=== PATIENT | female | born 1955 | race Caucasian/White ===

== ENCOUNTER 2016-08-29 15:17 | Emergency (ER) | payer OTHER ==
[2016-08-29 15:25] VITALS: BP 111/69; PULSE 90; TEMP 98; BMI 17.8
--- NOTE | 2016-08-29 16:23 | PDOC ---
History of Present Illness - General Chief Complaint: Pain, Acute Stated Complaint: ABD/ RT SIDE PAIN, ABSCESS Time Seen by Provider: 08/29/16 16:20 Past History - Past Medical History Allergies/Adverse Reactions: Allergies Allergy/AdvReac Type Severity Reaction Status Date / Time codeine AdvReac Verified 08/29/16 15:20 Home Medications: Ambulatory Orders Zolpidem Tartrate [Ambien] 5 mg PO HS PRN 07/28/13 Oxycodone HCl 30 mg PO QID 07/12/15 Anemia: No Asthma: No Cancer: No Cardiac Disorders: No CVA: No COPD: No CHF: No Dementia: No Diabetes: No GI Disorders: Yes (INTERNAL HEMORRHOIDS,POLYPS) Disorders: No HTN: No Hypercholesterolemia: No Liver Disease: No Seizures: No Thyroid Disease: No - Surgical History Abdominal Surgery: Yes Appendectomy: No Cardiac Surgery: No Cholecystectomy: Yes Lung Surgery: No Neurologic Surgery: Yes (NECK SX) Orthopedic Surgery: No - Immunization History Immunization Up to Date: Yes - Psycho/Social/Smoking Cessation Hx Anxiety: No Suicidal Ideation: No Smoking History: Current every day smoker Have you smoked in the past 12 months: Yes Number of Cigarettes Smoked Daily: 20 Information on smoking cessation initiated: No 'Breaking Loose' booklet given: 07/29/13 Hx Alcohol Use: No Drug/Substance Use Hx: No Substance Use Type: None Hx Substance Use Treatment: No *Physical Exam - Vital Signs Last Vital Signs Temp Pulse Resp BP Pulse Ox 98.0 F 90 20 111/69 95 08/29/16 15:21 08/29/16 15:21 08/29/16 15:21 08/29/16 15:21 08/29/16 15:21 *DC/Admit/Observation/Transfer Diagnosis at time of Disposition: [facility] - Discharge Dispostion Disposition: LEFT BEFORE MED [facility] - Referrals Referrals: Shelia Cason MD [Primary Care Provider] -
== END 2016-08-29 16:24 | disposition left against medical advice (07) ==
LOC: JER 15:17
DX: Z53.21 Procedure and treatment not carried out due to patient leaving prior to being seen by health care provider (principal); F17.210 Nicotine dependence, cigarettes, uncomplicated
CPT/HCPCS: 99281-25

== ENCOUNTER 2016-11-19 12:40 | Emergency (ER) | payer OTHER ==
[2016-11-19 12:49] VITALS: BMI 18.4
--- NOTE | 2016-11-19 13:13 | PDOC ---
History of Present Illness - General Chief Complaint: Chest Pain Stated Complaint: DIZZINESS Time Seen by Provider: 11/19/16 13:02 History Source: Patient Exam Limitations: No Limitations - History of Present Illness Initial Comments: 11/19/16 13:12 CHIEF COMPLAINT: Chest pain HISTORY OF PRESENT ILLNESS: This is a 61 year old female with a 25 pack-year history of smoking who presents for evaluation of sudden onset of "heartburn" while orking today. She reports associated lightheadedness. She denies shortness of breath, syncope or near syncope, or any other symptoms. Family history is notable for both parents with CAD/MIs under the age of 65. V/s on arrival are notable for SpO2 92%. REVIEW OF SYSTEMS: GENERAL/CONSTITUTIONAL: No fever or chills. No weakness. No weight change. HEAD, EYES, EARS, NOSE AND THROAT: No change in vision. No ear pain or discharge. No sore throat. CARDIOVASCULAR: Chest pain, "heartburn". RESPIRATORY: No cough, wheezing, or shortness of breath. GASTROINTESTINAL: No nausea, vomiting, diarrhea or constipation. GENITOURINARY: No dysuria, frequency, or change in urination. MUSCULOSKELETAL: No joint or muscle swelling or pain. No neck or back pain. SKIN: No rash or easy bruising. NEUROLOGIC: Lightheadedness. No headache, vertigo, loss of consciousness, or loss of sensation. PSYCHIATRIC: No depression or anxiety. ENDOCRINE: No increased thirst. No abnormal weight change. HEMATOLOGIC/LYMPHATIC: No anemia, easy bleeding, or history of blood clots. ALLERGIC/IMMUNOLOGIC: No hives or skin allergy. No latex allergy. PHYSICAL EXAM: GENERAL: The patient is awake, alert, and fully oriented, in no acute distress. HEAD: Normal with no signs of trauma. ENT: Pupils equal, round and reactive to light, extraocular movements intact, sclera anicteric, conjunctiva clear. Neck supple. LUNGS: Clear to auscultation bilaterally. Normal excursion. No respiratory distress or use of accessory muscles. CV: RRR, S1/S2, no MRG. Cap refill < 2 sec. ABDOMEN: Soft, non-distended, non-tender. EXTREMITIES: Normal range of motion, no edema. NEUROLOGICAL: Normal speech, normal gait. CN II-XII grossly intact. NIHSS=0. PSYCH: Normal mood, normal affect. SKIN: Warm, dry, normal turgor, no rashes or lesions noted. Past History - Past Medical History Allergies/Adverse Reactions: Allergies Allergy/AdvReac Type Severity Reaction Status Date / Time codeine AdvReac Verified 08/29/16 15:20 Home Medications: Ambulatory Orders Zolpidem Tartrate [Ambien] 5 mg PO HS PRN 07/28/13 Oxycodone HCl 30 mg PO QID 07/12/15 Aspirin [[place] Chewable] 81 mg PO DAILY 11/19/16 Cephalexin Monohydrate [Keflex -] 500 mg PO BID #8 capsule 11/19/16 Anemia: No Asthma: No Cancer: No Cardiac Disorders: No CVA: No COPD: No CHF: No Dementia: No Diabetes: No GI Disorders: Yes (INTERNAL HEMORRHOIDS,POLYPS) Disorders: No HTN: No Hypercholesterolemia: No Liver Disease: No Seizures: No Thyroid Disease: No - Surgical History Abdominal Surgery: Yes Appendectomy: No Cardiac Surgery: No Cholecystectomy: Yes Lung Surgery: No Neurologic Surgery: Yes (NECK SX) Orthopedic Surgery: No - Immunization History Immunization Up to Date: Yes - Psycho/Social/Smoking Cessation Hx Anxiety: No Suicidal Ideation: No Smoking History: Current every day smoker Have you smoked in the past 12 months: Yes Number of Cigarettes Smoked Daily: 20 Information on smoking cessation initiated: No 'Breaking Loose' booklet given: 07/29/13 Hx Alcohol Use: No Drug/Substance Use Hx: No Substance Use Type: None Hx Substance Use Treatment: No *Physical Exam - Vital Signs Last Vital Signs Temp Pulse Resp BP Pulse Ox 98.4 F 70 20 127/80 92 L 11/19/16 12:46 11/19/16 12:46 11/19/16 12:46 11/19/16 12:46 11/19/16 12:46 Heart Score/ECG Review - History History: Moderately suspicious - Electrocardiogram EKG: Normal - Age Age: 45-65 - Risk Factors Risk Factors Heart Score: Yes Smoking History, Yes Positive family hx of cardiac disease Based on the list above the patient has:: 1-2 risk factors - Troponin Troponin: </= normal limit - Score Heart Score - Total: 3 - ECG Intrepretation Rhythm: Regular Rhythm Comment:: 11/19/16 15:43 74bpm, no ST or T wave changes ED Treatment Course - LABORATORY CBC & Chemistry Diagram: 11/19/16 13:00 11/19/16 13:00 - RADIOLOGY Radiology Studies Ordered: Category Date Time Status CHEST X-RAY PORTABLE* [RAD] Stat Radiology 11/19/16 13:05 Ordered Medical Decision Making - Medical Decision Making 11/19/16 13:13 A/P: 61 year old female with chest pain. 1. EKG 2. Cardiac labs 3. Supplemental O2 4. Re-assess EKG: no ischemic changes. Troponin <0.02. UA with 9 WBCs, possible consistent with UTI. Culture sent, will treat with Keflex. Recommended that patient stay in ED or be placed in observation for MARY JO given smoking and strong family history of CAD. She declines. Signed out AMA. 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 Will return for worsening symptoms. *DC/Admit/Observation/Transfer Diagnosis at time of Disposition: Chest pain Qualifiers: Chest pain type: other chest pain Qualified Code(s): R07.89 - Other chest pain - Discharge Dispostion Disposition: AGAINST MEDICAL ADVICE Condition at time of disposition: Stable Admit: No - Prescriptions Prescriptions: Cephalexin Monohydrate [Keflex -] 500 mg PO BID #8 capsule - Referrals Referrals: Shelia Cason MD [Staff Physician] - Call tomorrow Rivas Piper MD [Staff Physician] - Call tomorrow (Call today) - Patient Instructions Printed Discharge Instructions: DI for Chest Pain Additional Instructions: -You are being signed out AGAINST MEDICAL ADVICE. -Your first set of blood work, your chest xray, and your EKG are normal, but we recommend a second set of blood tests to rule out heart attack. -Call cardiology (referral enclosed) TODAY to be seen as soon as possible for a stress test in the office. -Return here for recurrent chest pain, shortness of breath, fainting/near fainting, or any other concerning symptoms - Post Discharge Activity Work/School Note: Back to Work
[2016-11-19 13:45] LABS: URINE APPEARANCE SLCLOUDY; URINE BILIRUBIN NEGATIVE (NEGATIVE); URINE COLOR LTYELLOW; URINE GLUCOSE (UA) NEGATIVE (NEGATIVE); URINE KETONE NEGATIVE (NEGATIVE); URINE NITRITE NEGATIVE (NEGATIVE); URINE PROTEIN NEGATIVE (NEGATIVE); URINE UROBILINOGEN NEGATIVE E.U./dl (0.2-1.0)
[2016-11-19 13:47] LABS: URINE BLOOD 2+ (NEGATIVE); URINE LEUK ESTERASE 1+ (NEGATIVE)
[2016-11-19 13:50] LABS: URINE RBC 2 /hpf (0-3); URINE WBC 9 /hpf (3-5)
[2016-11-19 13:50] LABS: BASOPHIL 0.4 % (0-2.0); EOSINOPHIL 2.7 % (0-4.5); MCH 32.7 pg (25.7-33.7); MCHC 33.7 g/dl (32.0-36.0); MEAN PLT VOLUME 9.3 fl (7.5-11.1); PLATELET COUNT 221 K/MM3 (134-434); RDW 12.1 % (11.6-15.6); WHITE BLOOD COUNT 8.9 K/mm3 (4.0-10.0)
[2016-11-19] MEDS ORDERED: CEPHALEXIN MONOHYDRATE 500 MG CAPSULE (UD) PO ONE (13:55)
[2016-11-19 13:59] LABS: ALBUMIN 3.6 g/dl (3.4-5.0); ANION GAP 7 (8-16); BILIRUBIN,TOTAL 0.5 mg/dL (0.2-1.0); CALCIUM 8.8 mg/dL (8.5-10.1); CO2 29 mmol/L (21-32); CREATININE 0.7 mg/dL (0.55-1.02); GLUCOSE,RANDOM 150 mg/dL (74-106); SGOT/AST 18 U/L (15-37); SGPT/ALT 22 U/L (12-78); TOT PROT 6.2 g/dl (6.4-8.2)
[2016-11-19 14:00] LABS: INR 0.95 (0.82-1.09); PROTHROMBIN TIME (PATIENT) 10.4 SEC (9.98-11.88)
[2016-11-19 14:01] LABS: ALK PHOS 86 U/L (45-117); TROPONIN I < 0.02 ng/ml (0.00-0.05)
[2016-11-19 14:08] VITALS: TEMP 98.2
[2016-11-19] MEDS ORDERED: CEPHALEXIN MONOHYDRATE 250 MG CAPSULE (FP) ONE (14:10)
[2016-11-19 15:10] VITALS: BP 106/64; PULSE 68
--- NOTE | 2016-11-20 14:40 | EKG ---
Test Reason : Blood Pressure : / mmHG Vent. Rate : 065 BPM Atrial Rate : 065 BPM P-R Int : 154 ms QRS Dur : 090 ms QT Int : 390 ms P-R-T Axes : 071 012 056 degrees QTc Int : 405 ms NORMAL SINUS RHYTHM NORMAL ECG WHEN COMPARED WITH ECG OF 15-FEB-2016 11:09, NO SIGNIFICANT CHANGE WAS FOUND Confirmed by ANISA LORD MD ([id number]) on 11/20/2016 2:40:38 PM Referred By: Confirmed By:ANISA LORD MD
== END 2016-11-19 15:09 | disposition left against medical advice (07) ==
LOC: JER 12:40
DX: R07.89 Other chest pain (principal); F17.210 Nicotine dependence, cigarettes, uncomplicated
CPT/HCPCS: 36415; 71010-TC; 80053; 81003; 81015; 82550; 84484; 85025; 85610; 87086; 93005; 93010; 99284-25

== ENCOUNTER 2016-11-21 15:05 | Inpatient (IN) | payer OTHER ==
[2016-11-21 15:11] VITALS: BMI 18.4
--- NOTE | 2016-11-21 16:09 | PDOC ---
History of Present Illness <Ariana Ng - Last Filed: 11/21/16 16:09> - General History Source: Patient Exam Limitations: No Limitations - History of Present Illness Initial Comments: 11/21/16 16:29 The patient is a 61 year old female, with a significant past medical history of internal hemorrhoids, and polyps, who presents to the emergency department complaining of watery stool for approximately 3 days. Patient reports she has not been feeling well recently, and suddenly she began to experience loose watery stool. Patient states stool with liquid comes out between bowel movements. She reports associated left-sided abdominal pain. She denies any recent travel or sick contacts. Patient reports she presented to the ED on with similar symptoms, and was diagnosed with a UTI. Patient reports she was prescribed antibiotics, but was not compliant because her symptoms were not typical of her previous UTIs. Patient reports presenting to her PCPs office, Dr. Cason for further evaluation. Dr. Cason ordered an outpatient CT, which was notable for colitis. Patient was sent to the ED for further evaluation. Patient denies any family history of ulcerative colitis. She denies any nausea, or constipation. She denies any dysuria, hematuria, frequency, or urgency. She denies fever or chills. Allergies: Codeine Past Surgical History: (X4), Cholecystectomy Family History: CAD and MIs under 65 Social History: Current everyday smoker. No ETOH or drug use. PCP: Dr. Cason <Jennifer Langford - Last Filed: 11/21/16 16:32> - General Chief Complaint: Pain Stated Complaint: SENT BY PCP Past History - Past Medical History Anemia: No Asthma: No Cancer: No Cardiac Disorders: No CVA: No COPD: No CHF: No Dementia: No Diabetes: No GI Disorders: Yes (INTERNAL HEMORRHOIDS,POLYPS) Disorders: No HTN: No Hypercholesterolemia: No Liver Disease: No Seizures: No Thyroid Disease: No - Surgical History Abdominal Surgery: Yes Appendectomy: No Cardiac Surgery: No Cholecystectomy: Yes Lung Surgery: No Neurologic Surgery: Yes (NECK SX) Orthopedic Surgery: No - Immunization History Immunization Up to Date: Yes - Psycho/Social/Smoking Cessation Hx Anxiety: No Suicidal Ideation: No Smoking History: Current every day smoker Have you smoked in the past 12 months: Yes Number of Cigarettes Smoked Daily: 20 Information on smoking cessation initiated: No 'Breaking Loose' booklet given: 07/29/13 Hx Alcohol Use: No Drug/Substance Use Hx: No Substance Use Type: None Hx Substance Use Treatment: No <Ariana Ng - Last Filed: 11/21/16 16:09> <Jennifer Langford - Last Filed: 11/21/16 16:32> - Past Medical History Allergies/Adverse Reactions: Allergies Allergy/AdvReac Type Severity Reaction Status Date / Time codeine AdvReac Verified 11/21/16 15:11 Home Medications: Ambulatory Orders Zolpidem Tartrate [Ambien] 5 mg PO HS PRN 07/28/13 Oxycodone HCl 30 mg PO QID 07/12/15 Aspirin [[place] Chewable] 81 mg PO DAILY 11/19/16 Cephalexin Monohydrate [Keflex -] 500 mg PO BID #8 capsule 11/19/16 Review of Systems - Review of Systems Able to Perform ROS?: Yes Comments:: 11/21/16 16:29 GENERAL/CONSTITUTIONAL: No fever or chills. No weakness. HEAD, EYES, EARS, NOSE AND THROAT: No change in vision. No ear pain or discharge. No sore throat. CARDIOVASCULAR: No chest pain or shortness of breath. RESPIRATORY: No cough, wheezing, or hemoptysis. GASTROINTESTINAL: Yes: +abdominal pain, +diarrhea. No nausea, vomiting, or constipation. GENITOURINARY: No dysuria, frequency, or change in urination. MUSCULOSKELETAL: No joint or muscle swelling or pain. No neck or back pain. SKIN: No rash NEUROLOGIC: No headache, vertigo, loss of consciousness, or change in strength/ sensation. ENDOCRINE: No increased thirst. No abnormal weight change. HEMATOLOGIC/LYMPHATIC: No anemia, easy bleeding, or history of blood clots. ALLERGIC/IMMUNOLOGIC: No hives or skin allergy. <Jennifer Langford - Last Filed: 11/21/16 16:32> *Physical Exam - Vital Signs Last Vital Signs Temp Pulse Resp BP Pulse Ox 98.8 F 100 H 20 134/90 96 11/21/16 15:07 11/21/16 15:07 11/21/16 15:07 11/21/16 15:07 11/21/16 15:07 <Ariana Ng - Last Filed: 11/21/16 16:09> - Vital Signs Last Vital Signs Temp Pulse Resp BP Pulse Ox 98.8 F 100 H 20 134/90 96 11/21/16 15:07 11/21/16 15:07 11/21/16 15:07 11/21/16 15:07 11/21/16 15:07 - Physical Exam Comments: 11/21/16 16:30 GENERAL: Awake, alert, and fully oriented, in no acute distress HEAD: No signs of trauma EYES: PERRLA, EOMI, sclera anicteric, conjunctiva clear ENT: Auricles normal inspection, hearing grossly normal, nares patent. Dry mucosa NECK: Normal ROM, supple, no lymphadenopathy, JVD, or masses LUNGS: Breath sounds equal, clear to auscultation bilaterally. No wheezes, and no crackles HEART: Regular rate and rhythm, normal S1 and S2, no murmurs, rubs or gallops ABDOMEN: Left-sided tenderness to palpation, but no rebound or guarding. Normoactive bowel sounds. No masses EXTREMITIES: Normal range of motion, no edema. No clubbing or cyanosis. No cords , erythema, or tenderness. DP/PT pulses 2+ and symmetric. MUSCULOSKELTAL: No CVA tenderness NEUROLOGICAL: Moves all extremities. Normal speech, normal gait SKIN: Warm, Dry, normal turgor, no rashes or lesions noted. <Jennifer Langford - Last Filed: 11/21/16 16:32> ED Treatment Course - LABORATORY CBC & Chemistry Diagram: 11/21/16 16:15 11/21/16 16:15 - ADDITIONAL ORDERS Additional order review: 11/21/16 16:15 RBC 4.11 MCV 96.0 MCHC 33.4 RDW 12.1 MPV 9.4 Neutrophils % 85.9 H D Lymphocytes % 7.2 L D Monocytes % 5.8 Eosinophils % 0.8 Basophils % 0.3 <Jennifer Langford - Last Filed: 11/21/16 16:32> Medical Decision Making - Medical Decision Making 11/21/16 16:03 61 yo F with c/o loose watery stool x 3 days. pt states began not feeling well recently, then suddenly noted having loose watery stool. states stool with liquid coming out between urges. also c/o lower abd pain. no recent travel or abx. no urinary complaints. was seen and diagnosed with uti one week ago, bit didn't take abx because was not having urinary symptoms. saw Dr. Cason, who ordered outpt ct a/p, noted to have shaw colitis. sent to ED. no f/c no family h/ o ulcerative colitis. on exam awake alert dry mucous membranes. lungs clear heart RRR no mr//g bad soft . llq left mid quad ttp. no rebound no guarding. no cva tenderness. skin warm and dry no edema. plan: r/o electrolyte abnormality, infectious vs. ischemic vs. autoimmune colitis. pt already had outpt ct. plan iv abx, iv hydration labs stool studeies and Gi consult. <Ariana Ng - Last Filed: 11/21/16 16:09> *DC/Admit/Observation/Transfer - Discharge Dispostion Admit: Yes <Ariana Ng - Last Filed: 11/21/16 16:09> - Attestations Scribe Attestion: 11/21/16 16:30 Documentation prepared by Jennifer Langford, acting as medical staff manager for Ariana Ng MD. <Jennifer Langford - Last Filed: 11/21/16 16:32> Diagnosis at time of Disposition: Colitis - Referrals Referrals: Shelia Cason MD [Primary Care Provider] -
[2016-11-21] MEDS ORDERED: SODIUM CHLORIDE 0.9% 1000 ML INFUS.BAG IV ONE (16:12)
[2016-11-21] MEDS ORDERED: CIPROFLOXACIN 400 MG/D5W 200 ML IVPB ONE (16:12)
[2016-11-21] MEDS ORDERED: METRONIDAZOLE 500 MG PREMIXED 100 ML IVPB ONE ×2 (16:12→16:53)
[2016-11-21 16:25] LABS: BASOPHIL 0.3 % (0-2.0); EOSINOPHIL 0.8 % (0-4.5); MCH 32.1 pg (25.7-33.7); MCHC 33.4 g/dl (32.0-36.0); MEAN PLT VOLUME 9.4 fl (7.5-11.1); NEUTROPHILS 85.9 % (42.8-82.8); PLATELET COUNT 222 K/MM3 (134-434); RDW 12.1 % (11.6-15.6); WHITE BLOOD COUNT 16.2 K/mm3 (4.0-10.0)
[2016-11-21 16:55] LABS: ALBUMIN 3.4 g/dl (3.4-5.0); ANION GAP 10 (8-16); BILIRUBIN,TOTAL 0.8 mg/dL (0.2-1.0); CALCIUM 8.8 mg/dL (8.5-10.1); CO2 26 mmol/L (21-32); CREATININE 0.7 mg/dL (0.55-1.02); GLUCOSE,RANDOM 174 mg/dL (74-106); SGOT/AST 22 U/L (15-37); SGPT/ALT 25 U/L (12-78); TOT PROT 6.2 g/dl (6.4-8.2)
[2016-11-21 16:56] LABS: ALK PHOS 101 U/L (45-117)
[2016-11-21] MEDS ORDERED: ONDANSETRON 4 MG/2 ML VIAL IVPB PRN (17:59)
[2016-11-21] MEDS ORDERED: SODIUM CHLORIDE 1,000 ML IV SCH (18:00)
--- NOTE | 2016-11-21 18:48 | CON.GI ---
Consult Consult Specialty:: gastroenterology Referred by:: Dr Shelia Cason - History of Present Illness History of Present Illness: 61 y/o female was doing well until 3 days ago when she developed persistent LLQ pain and soft, non bloody stool. Cat scan done today which revealed an inflammed sigmoid. S/p colonoscopy a year ago which revealed colonic polyps - Past Surgical History Past Surgical History: Yes: Cholecystectomy Additional Surgical History: ceasarian section, breast implants - Alcohol/Substance Use Hx Alcohol Use: No - Smoking History Smoking history: Current every day smoker Have you smoked in the past 12 months: Yes Aproximately how many cigarettes per day: 20 Home Medications - Allergies Allergies/Adverse Reactions: Allergies Allergy/AdvReac Type Severity Reaction Status Date / Time codeine AdvReac Verified 11/21/16 15:11 - Home Medications Home Medications: Ambulatory Orders Zolpidem Tartrate [Ambien] 5 mg PO HS PRN 07/28/13 Oxycodone HCl 30 mg PO QID 07/12/15 Aspirin [[place] Chewable] 81 mg PO DAILY 11/19/16 Cephalexin Monohydrate [Keflex -] 500 mg PO BID #8 capsule 11/19/16 Family Disease History - Family Disease History Family History: Denies (colon andd gastric cancer) Review of Systems - Review of Systems Constitutional: denies: Fever Eyes: denies: Blind Spots HENT: denies: Difficult Swallowing Neck: denies: Decreased ROM Cardiovascular: denies: Chest Pain Respiratory: denies: SOB Gastrointestinal: reports: Abdominal Pain, Diarrhea Physical Exam-GI Vital Signs: Vital Signs Temperature 98.8 F 11/21/16 15:07 Pulse Rate 100 H 11/21/16 15:07 Respiratory Rate 20 11/21/16 15:07 Blood Pressure 134/90 11/21/16 15:07 O2 Sat by Pulse Oximetry (%) 96 11/21/16 15:07 Constitutional: Yes: No Distress Eyes: Yes: Conjunctiva Clear HENT: Yes: Atraumatic Neck: Yes: Supple Cardiovascular: Yes: Regular Rate and Rhythm Respiratory: Yes: CTA Bilaterally ...Palpate: Yes: Soft, Tenderness (llq pain). No: Firm/Rigid, Guarding, Hepatomegaly, Mass, Splenomegaly Labs: CBC, BMP 11/21/16 16:15 11/21/16 16:15 Problem List - Problems (1) Diarrhea Assessment/Plan: r/o infectious vs ishemic colitis R> stool analysis culture and sensitivity, ova and parasites, c.diff r/o hypercoaguable state Iv hydration continue antibiotics Code(s): R19.7 - DIARRHEA, UNSPECIFIED
--- NOTE | 2016-11-21 20:07 | HP ---
Admitting History and Physical - Admission History of Present Illness: 61 year old female, with a significant past medical history of internal hemorrhoids, and polyps, who presents to the emergency department complaining of watery stool for approximately 3 days. Patient reports she has not been feeling well recently, and suddenly she began to experience loose watery stool. Patient states stool with liquid comes out between bowel movements. She reports associated left-sided abdominal pain. She denies any recent travel or sick contacts. Patient reports she presented to the ED on 11/19/16 with similar symptoms, and was diagnosed with a UTI. Patient reports she was prescribed antibiotics, but was not compliant because her symptoms were not typical of her previous UTIs. Patient reports presented to the office and an outpatient CT done, which was notable for colitis. Patient was sent to the ED for further evaluation. Patient denies any family history of ulcerative colitis. She denies any nausea, or constipation. She denies any dysuria, hematuria, frequency, or urgency. She denies fever or chills. - Past Medical History Cardiovascular: No: CAD, HTN Pulmonary: No: COPD Gastrointestinal: Yes: GERD Musculoskeletal: Yes: Chronic low back pain - Past Surgical History Past Surgical History: Yes: Cholecystectomy - Smoking History Smoking history: Current every day smoker Have you smoked in the past 12 months: Yes Aproximately how many cigarettes per day: 20 - Alcohol/Substance Use Hx Alcohol Use: No Home Medications - Allergies Allergies/Adverse Reactions: Allergies Allergy/AdvReac Type Severity Reaction Status Date / Time codeine AdvReac Verified 11/21/16 15:11 - Home Medications Home Medications: Ambulatory Orders Zolpidem Tartrate [Ambien] 5 mg PO HS PRN 07/28/13 Oxycodone HCl 30 mg PO QID 07/12/15 Aspirin [[place] Chewable] 81 mg PO DAILY 11/19/16 Cephalexin Monohydrate [Keflex -] 500 mg PO BID #8 capsule 11/19/16 Review of Systems - Review of Systems Neck: reports: No Symptoms Cardiovascular: denies: Chest Pain, Shortness of Breath Respiratory: denies: SOB, SOB on Exertion Gastrointestinal: reports: Abdominal Pain, Diarrhea. denies: Rectal Bleeding Physical Examination Vital Signs: Vital Signs Temperature 98.8 F 11/21/16 15:07 Pulse Rate 100 H 11/21/16 15:07 Respiratory Rate 20 11/21/16 15:07 Blood Pressure 134/90 11/21/16 15:07 O2 Sat by Pulse Oximetry (%) 96 11/21/16 15:07 Cardiovascular: Yes: Regular Rate and Rhythm Respiratory: Yes: Regular, CTA Bilaterally Gastrointestinal: Yes: Normal Bowel Sounds, Soft, Tenderness (llq) Edema: No Labs: CBC, BMP 11/21/16 16:15 11/21/16 16:15 Imaging - Results Cat Scan: Report Reviewed Problem List - Problems (1) Colitis Assessment/Plan: IVF IV ABX NPO GI CONSULT Code(s): K52.9 - NONINFECTIVE GASTROENTERITIS AND COLITIS, UNSPECIFIED (2) Abdominal pain Assessment/Plan: SEE ABOVE Code(s): R10.9 - UNSPECIFIED ABDOMINAL PAIN (3) Leukocytosis Assessment/Plan: MONITOR Code(s): D72.829 - ELEVATED WHITE BLOOD CELL COUNT, UNSPECIFIED
[2016-11-21] MEDS ORDERED: oxyCODONE HCL 5 MG TABLET ONE (20:18)
[2016-11-21] MEDS: oxyCODONE HCL 5 MG TABLET PO PRN (20:20)
[2016-11-21] MEDS: DEXTROSE 5%-NORMAL SALINE 1,000 ML IV SCH (21:11)
[2016-11-21] MEDS: HEPARIN NA (PORCINE) 5,000 UNITS/ML 1ML VIAL SQ SCH (21:12)
[2016-11-21] MEDS: ZOLPIDEM TARTRATE 5 MG TABLET PO PRN (22:10)
[2016-11-22] MEDS: oxyCODONE HCL 5 MG TABLET PO PRN ×6 (00:07→20:37)
[2016-11-22] MEDS: PIPERACILLIN/TAZOB 3.375 GM/50 ML PRE-DOCKED IVPB SCH ×2 (01:26→09:50)
[2016-11-22] MEDS: METRONIDAZOLE PREMIXED IVPB 50 ML IVPB SCH ×3 (01:37→18:02)
[2016-11-22] MEDS: DEXTROSE 5%-NORMAL SALINE 1,000 ML IV SCH (05:25)
--- NOTE | 2016-11-22 07:37 | PN ---
Progress Note, Physician History of Present Illness: still with pain - Current Medication List Current Medications: Active Medications Heparin Sodium (Porcine) (Heparin -) 5,000 unit SQ BID CHRISTOS Last Admin: 11/21/16 21:12 Dose: 5,000 unit Metronidazole (Flagyl 250mg Premixed Ivpb -) 50 mls @ 50 mls/hr IVPB Q8H-IV CHRISTOS Last Admin: 11/22/16 01:37 Dose: 50 mls/hr Sodium Chloride (Normal Saline -) 1,000 mls @ 125 mls/hr IV ASDIR CHRISTOS Last Admin: 11/21/16 19:05 Dose: 125 mls/hr Dextrose/Sodium Chloride (D5-Ns -) 1,000 mls @ 150 mls/hr IV ASDIR CHRISTOS Stop: 11/24/16 01:39 Last Admin: 11/22/16 05:25 Dose: 150 mls/hr Ondansetron HCl (Zofran Injection) 4 mg IVPB Q6H PRN PRN Reason: NAUSEA Oxycodone HCl (Roxicodone -) 10 mg PO Q4H PRN PRN Reason: PAIN Last Admin: 11/22/16 04:02 Dose: 10 mg Piperacillin Sod/Tazobactam Sod (Zosyn 3.375gm Ivpb (Pre-Docked)) 3.375 gm IVPB Q8H-IV CHRISTOS PRN Reason: Protocol Piperacillin Sod/Tazobactam Sod (Zosyn 3.375gm Ivpb (Pre-Docked)) 3.375 gm IVPB Q8H-IV CHRISTOS PRN Reason: Protocol Stop: 11/22/16 10:01 Last Admin: 11/22/16 01:26 Dose: 3.375 gm Zolpidem Tartrate (Ambien -) 5 mg PO HS PRN PRN Reason: INSOMNIA Last Admin: 11/21/16 22:10 Dose: 5 mg - Objective Vital Signs: Vital Signs Temperature 98.1 F 11/22/16 05:51 Pulse Rate 71 11/22/16 05:51 Respiratory Rate 20 11/22/16 05:51 Blood Pressure 90/50 11/22/16 05:51 O2 Sat by Pulse Oximetry (%) 99 11/21/16 20:22 Cardiovascular: Yes: Regular Rate and Rhythm Respiratory: Yes: Regular, CTA Bilaterally Gastrointestinal: Yes: Normal Bowel Sounds, Soft, Tenderness (LLQ) Labs: CBC, BMP 11/21/16 16:15 11/21/16 16:15 Problem List - Problems (1) Colitis Assessment/Plan: R/O INFECTIOUS ETIOLOGY VS LOW FLOW STATE IVF IV ABX NPO GI CONSULT ID CONSULT Code(s): K52.9 - NONINFECTIVE GASTROENTERITIS AND COLITIS, UNSPECIFIED (2) Abdominal pain Assessment/Plan: SEE ABOVE Code(s): R10.9 - UNSPECIFIED ABDOMINAL PAIN (3) Leukocytosis Assessment/Plan: MONITOR Code(s): D72.829 - ELEVATED WHITE BLOOD CELL COUNT, UNSPECIFIED
[2016-11-22 08:14] LABS: BASOPHIL 0.4 % (0-2.0); EOSINOPHIL 2.9 % (0-4.5); MCH 32.8 pg (25.7-33.7); MCHC 33.9 g/dl (32.0-36.0); MEAN CELL VOLUME 96.7 fl (80-96); MEAN PLT VOLUME 9.1 fl (7.5-11.1); NEUTROPHILS 62.6 % (42.8-82.8); PLATELET COUNT 171 K/MM3 (134-434); WHITE BLOOD COUNT 6.3 K/mm3 (4.0-10.0)
[2016-11-22 08:40] LABS: ALBUMIN 2.7 g/dl (3.4-5.0); ANION GAP 7 (8-16); CO2 26 mmol/L (21-32); GLUCOSE,RANDOM 116 mg/dL (74-106); SGOT/AST 14 U/L (15-37); SGPT/ALT 21 U/L (12-78)
[2016-11-22 08:45] LABS: ALK PHOS 70 U/L (45-117); BILIRUBIN,TOTAL 0.5 mg/dL (0.2-1.0); C-REACTIVE PROTEIN 4.4 MG/DL (0.00-0.3); CALCIUM 8.3 mg/dL (8.5-10.1); CREATININE 0.5 mg/dL (0.55-1.02); TOT PROT 5.1 g/dl (6.4-8.2)
[2016-11-22 09:20] LABS: THYROID STIMULATING HORMONE 0.72 uIU/ml (0.358-3.74)
[2016-11-22] MEDS: HEPARIN NA (PORCINE) 5,000 UNITS/ML 1ML VIAL SQ SCH ×2 (09:50→21:27)
[2016-11-22 10:05] LABS: ERYTHROCYTE SEDIMENTATION RATE 11 mm/hr (0-30)
[2016-11-22] MEDS: D5-NS + 20 MEQ KCL - 1,000 ML IV SCH ×2 (11:32→20:40)
--- NOTE | 2016-11-22 12:09 | PN ---
Progress Note (short form) - Note Progress Note: ID Consult dictated L sided colitis - infectious/ inflammatory v. ischemic Pending stool studies, empiric ceftriaxone/ flagyl
--- NOTE | 2016-11-22 13:16 | CONS ---
DATE OF CONSULTATION: DATE OF DICTATION: 11/22/2016 HISTORY OF PRESENT ILLNESS: The patient is a 61-year-old female evaluated for colitis. Patient reports not feeling well for a week or so. She had developed some crampy abdominal pain and what she described as heartburn. She presented to the emergency room on November 19, 2016. She was diagnosed with urinary tract infection. Patient states she did not have any urinary tract symptoms. She was prescribed an antibiotic. However, she did not take the antibiotic. She subsequently developed worsening crampy abdominal pain localized to the left abdomen. She also described some fecal incontinence. She had developed watery brown diarrhea which was associated with episodes of incontinence. She denies any nausea or vomiting. No fever or chills. The patient denies any ill contacts. No family or friends with GI symptoms. As mentioned, she did not take the oral antibiotic prior to admission for her UTI. She denied any travel history. Patient has had a history of GI issues. She has had colonic polyps in the past. Her last colonoscopy was approximately 2 years ago. CAT scan performed shows left-sided colitis from the splenic flexure extending diffusely to the level of the rectum. PAST MEDICAL HISTORY: As above. PAST SURGICAL HISTORY: Status post section and a hysterectomy. ALLERGIES: CODEINE. MEDICATIONS: As an outpatient include Ambien, aspirin, Keflex. 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 She does not have direct patient contact. Positive history of tobacco use. SYSTEMS REVIEW:Neurologic: No loss of consciousness, seizure activity, or focal weakness. Cardiac: Negative chest pain or palpitations. Respiratory: Negative cough or sputum production. Gastrointestinal: As per HPI. Genitourinary: Negative for urinary tract infection. LABORATORY DATA: White count on admission 16.2, 85% neutrophils, 7 lymphocytes, 5 monocytes, no eosinophils. BUN 10, creatinine 0.5. Liver enzymes normal. PHYSICAL EXAMINATION:General: She is awake and alert. She is weak appearing; however, not acutely toxic, in no acute distress. Vital Signs: Temperature 98.1, blood pressure 90/50, pulse 71, regular, respirations 20 per minute. HEENT: Sclerae anicteric. Cardiac: Heart sounds S1, S2. Lungs: Clear. Abdomen: Soft. Left-sided tenderness to palpation. No mass, rebound, or rigidity. Extremities: Negative for edema. IMPRESSION:1. Acute left-sided colitis. 2. Leukocytosis, possible sepsis secondary to colitis. RECOMMENDATIONS: Etiology of left-sided colitis infectious/inflammatory versus ischemic. Focal nature of the colitis argues more for ischemic or inflammatory versus infectious. Await stool studies, including stool for culture and sensitivity, leukocytes, C. difficile, ova and parasites, stool for norovirus and rotavirus, blood cultures. Empiric antibiotic coverage with ceftriaxone and Flagyl. GI evaluation. Followup colonoscopy when improved. Will follow. Thank you for the kind referral. VANDANA CREWS M.D. [id number]
[2016-11-22] MEDS: CEFTRIAXONE 100 ML IVPB SCH (13:24)
[2016-11-22] MEDS ORDERED: PT OWN MED DRAWER 7, Y5N ONE (17:41)
[2016-11-22] MEDS ORDERED: PIPERACILLIN/TAZOB 3.375 GM/50 ML PRE-DOCKED IVPB SCH (18:00)
--- NOTE | 2016-11-22 19:38 | CONSULT ---
Consult - text type - Consultation Consultation Note: 61 y/o female was doing well until 3 days ago when she developed persistent LLQ pain and soft, non bloody stool. Cat scan done today which revealed an inflammed sigmoid. S/p colonoscopy a year ago which revealed colonic polyps - Past Surgical History Past Surgical History: Yes: Cholecystectomy Additional Surgical History: ceasarian section, breast implants - Smoking History Smoking history: Current every day smoker Home Medications - Allergies Allergies/Adverse Reactions: Allergies Allergy/AdvReac Type Severity Reaction Status Date / Time codeine AdvReac Verified 11/21/16 15:11 - Home Medications Home Medications: Ambulatory Orders Zolpidem Tartrate [Ambien] 5 mg PO HS PRN 07/28/13 Oxycodone HCl 30 mg PO QID 07/12/15 Aspirin [[place] Chewable] 81 mg PO DAILY 11/19/16 Cephalexin Monohydrate [Keflex -] 500 mg PO BID #8 capsule 11/19/16 Family Disease History - Family Disease History Family History: Denies (colon andd gastric cancer) Physical Exam-GI Vital Signs: Vital Signs Temperature 98.8 F 11/21/16 15:07 Pulse Rate 100 H 11/21/16 15:07 Respiratory Rate 20 11/21/16 15:07 Blood Pressure 134/90 11/21/16 15:07 O2 Sat by Pulse Oximetry (%) 96 11/21/16 15:07 Constitutional: Yes: No Distress Eyes: Yes: Conjunctiva Clear HENT: Yes: Atraumatic Neck: Yes: Supple Cardiovascular: Yes: Regular Rate and Rhythm Respiratory: Yes: CTA Bilaterally ...Palpate: Yes: Soft, Tenderness (llq pain). No: Firm/Rigid, Guarding, Hepatomegaly, Mass, Splenomegaly Labs reviewed A/P 61 y/o patient with Lt. sided colitis infectious/inflammatory vs ischemic no prior thhrombosis or family h/o thrombosis h/o miscarriages --4 due to ? hormonal dysregulation---got progesterone in past will check thrombophilia w/u also with chronic pericardial effusion --w/u per primary team also s/p cholecystectomy, dilated bile ducts--chronic. last MRI 04/18 . F/U pe GI team Leukocytosis--baseline ? smoking will recheck mutations -- JAK2/MPL/CALR as outpatient
[2016-11-22] MEDS: ZOLPIDEM TARTRATE 5 MG TABLET PO PRN (23:05)
[2016-11-23] MEDS: METRONIDAZOLE PREMIXED IVPB 50 ML IVPB SCH ×3 (02:23→18:00)
[2016-11-23] MEDS: oxyCODONE HCL 5 MG TABLET PO PRN ×4 (06:04→18:05)
[2016-11-23] MEDS: D5-NS + 20 MEQ KCL - 1,000 ML IV SCH ×2 (06:06→12:00)
--- NOTE | 2016-11-23 07:54 | PN ---
Progress Note, Physician History of Present Illness: still with pain - Current Medication List Current Medications: Active Medications Heparin Sodium (Porcine) (Heparin -) 5,000 unit SQ BID [facility] Last Admin: 11/22/16 21:27 Dose: 5,000 unit Metronidazole (Flagyl 250mg Premixed Ivpb -) 50 mls @ 50 mls/hr IVPB Q8H-IV [facility] Last Admin: 11/23/16 02:23 Dose: 50 mls/hr Dextrose/Sodium Chloride (Dextrose 5%-Normal Saline+20 Meq Kcl -) 1,000 mls @ 150 mls/hr IV ASDIR [facility] Last Admin: 11/23/16 06:06 Dose: 150 mls/hr Ceftriaxone Sodium (Rocephin 2gm Ivpb (Pre-Docked)) 100 mls @ 200 mls/hr IVPB DAILY [facility] Last Admin: 11/22/16 13:24 Dose: 200 mls/hr Ondansetron HCl (Zofran Injection) 4 mg IVPB Q6H PRN PRN Reason: NAUSEA Oxycodone HCl (Roxicodone -) 10 mg PO Q4H PRN PRN Reason: PAIN Last Admin: 11/23/16 06:04 Dose: 10 mg Zolpidem Tartrate (Ambien -) 5 mg PO HS PRN PRN Reason: INSOMNIA Last Admin: 11/22/16 23:05 Dose: 5 mg - Objective Vital Signs: Vital Signs Temperature 98.2 F 11/23/16 05:39 Pulse Rate 66 11/23/16 05:39 Respiratory Rate 20 11/23/16 05:39 Blood Pressure 108/58 11/23/16 05:39 O2 Sat by Pulse Oximetry (%) 99 11/21/16 20:22 Cardiovascular: Yes: Regular Rate and Rhythm Respiratory: Yes: Regular, CTA Bilaterally Gastrointestinal: Yes: Normal Bowel Sounds, Soft, Tenderness (MINIMAL --MUCH BETTER) Labs: CBC, BMP 11/22/16 07:00 11/22/16 07:00 Problem List - Problems (1) Colitis Assessment/Plan: R/O INFECTIOUS ETIOLOGY VS LOW FLOW STATE IVF IV ABX NPO GI CONSULT ID CONSULT Code(s): K52.9 - NONINFECTIVE GASTROENTERITIS AND COLITIS, UNSPECIFIED (2) Abdominal pain Assessment/Plan: SEE ABOVE Code(s): R10.9 - UNSPECIFIED ABDOMINAL PAIN (3) Leukocytosis Assessment/Plan: MONITOR IMPROVED CBC WBC 5.1 K/mm3 (4.0-10.0) 11/23/16 08:45 RBC 3.84 M/mm3 (3.60-5.2) 11/23/16 08:45 Hgb 12.5 GM/dL (10.7-15.3) 11/23/16 08:45 Hct 37.3 % (32.4-45.2) 11/23/16 08:45 MCV 97.2 fl (80-96) H 11/23/16 08:45 MCHC 33.4 g/dl (32.0-36.0) 11/23/16 08:45 RDW 12.2 % (11.6-15.6) 11/23/16 08:45 Plt Count 176 K/MM3 (134-434) 11/23/16 08:45 MPV 9.4 fl (7.5-11.1) 11/23/16 08:45 Neutrophils % 61.0 % (42.8-82.8) 11/23/16 08:45 Lymphocytes % 22.8 % (8-40) 11/23/16 08:45 Monocytes % 12.3 % (3.8-10.2) H 11/23/16 08:45 Eosinophils % 3.5 % (0-4.5) 11/23/16 08:45 Basophils % 0.4 % (0-2.0) 11/23/16 08:45 ESR 11 mm/hr (0-30) 11/22/16 07:00 Code(s): D72.829 - ELEVATED WHITE BLOOD CELL COUNT, UNSPECIFIED
[2016-11-23 09:02] LABS: BASOPHIL 0.4 % (0-2.0); EOSINOPHIL 3.5 % (0-4.5); MCH 32.4 pg (25.7-33.7); MCHC 33.4 g/dl (32.0-36.0); MEAN CELL VOLUME 97.2 fl (80-96); MEAN PLT VOLUME 9.4 fl (7.5-11.1); PLATELET COUNT 176 K/MM3 (134-434); RDW 12.2 % (11.6-15.6); WHITE BLOOD COUNT 5.1 K/mm3 (4.0-10.0)
[2016-11-23 09:19] LABS: ALBUMIN 2.8 g/dl (3.4-5.0); ALK PHOS 76 U/L (45-117); ANION GAP 4 (8-16); BILIRUBIN,TOTAL 0.3 mg/dL (0.2-1.0); CALCIUM 8.7 mg/dL (8.5-10.1); CO2 27 mmol/L (21-32); CREATININE 0.6 mg/dL (0.55-1.02); GLUCOSE,RANDOM 102 mg/dL (74-106); SGOT/AST 17 U/L (15-37); SGPT/ALT 23 U/L (12-78); TOT PROT 5.3 g/dl (6.4-8.2)
[2016-11-23] MEDS: CEFTRIAXONE 100 ML IVPB SCH (09:45)
[2016-11-23] MEDS: HEPARIN NA (PORCINE) 5,000 UNITS/ML 1ML VIAL SQ SCH ×2 (09:45→21:11)
--- NOTE | 2016-11-23 10:37 | EKG ---
Test Reason : Blood Pressure : / mmHG Vent. Rate : 080 BPM Atrial Rate : 080 BPM P-R Int : 152 ms QRS Dur : 088 ms QT Int : 372 ms P-R-T Axes : 075 019 062 degrees QTc Int : 429 ms NORMAL SINUS RHYTHM NORMAL ECG WHEN COMPARED WITH ECG OF 19-NOV-2016 12:56, NO SIGNIFICANT CHANGE WAS FOUND Confirmed by VANDANA VEGA MD ([id number]) on 11/23/2016 10:37:24 AM Referred By: Confirmed By:VANDANA VEGA MD
--- NOTE | 2016-11-23 13:32 | PN ---
Progress Note, Physician History of Present Illness: Reports diffuse abdominal discomfort- now improved (7 out of 10 ) Denies N/V/D No rectal bleeding No fever/ chills Afebrile WBC improved- now WNL BC (-) Stool studies pending - Current Medication List Current Medications: Active Medications Heparin Sodium (Porcine) (Heparin -) 5,000 unit SQ BID [facility] Last Admin: 11/23/16 09:45 Dose: 5,000 unit Metronidazole (Flagyl 250mg Premixed Ivpb -) 50 mls @ 50 mls/hr IVPB Q8H-IV [facility] Last Admin: 11/23/16 09:44 Dose: 50 mls/hr Dextrose/Sodium Chloride (Dextrose 5%-Normal Saline+20 Meq Kcl -) 1,000 mls @ 150 mls/hr IV ASDIR [facility] Last Admin: 11/23/16 12:00 Dose: Not Given Ceftriaxone Sodium (Rocephin 2gm Ivpb (Pre-Docked)) 100 mls @ 200 mls/hr IVPB DAILY [facility] Last Admin: 11/23/16 09:45 Dose: 200 mls/hr Ondansetron HCl (Zofran Injection) 4 mg IVPB Q6H PRN PRN Reason: NAUSEA Oxycodone HCl (Roxicodone -) 10 mg PO Q4H PRN PRN Reason: PAIN Last Admin: 11/23/16 10:01 Dose: 10 mg Zolpidem Tartrate (Ambien -) 5 mg PO HS PRN PRN Reason: INSOMNIA Last Admin: 11/22/16 23:05 Dose: 5 mg - Objective Vital Signs: Vital Signs Temperature 98.1 F 11/23/16 09:25 Pulse Rate 59 L 11/23/16 09:25 Respiratory Rate 20 11/23/16 09:25 Blood Pressure 104/56 11/23/16 09:25 O2 Sat by Pulse Oximetry (%) 94 L 11/23/16 09:00 Constitutional: Yes: No Distress Eyes: Yes: Conjunctiva Clear Cardiovascular: Yes: Regular Rate and Rhythm, S1, S2 Respiratory: Yes: CTA Bilaterally Gastrointestinal: Yes: Normal Bowel Sounds, Soft, Tenderness, Other (mild diffuse tenderness) Edema: No Labs: CBC, BMP 11/23/16 08:45 11/23/16 08:45 Assessment/Plan Colitis- infectious/ inflammatory v. ischemic Leukocytosis- resolved Await stool studies Continue empiric ceftriaxone/ flagyl
[2016-11-23] MEDS ORDERED: PT OWN MED DRAWER 7, Y5N ONE (17:58)
--- NOTE | 2016-11-23 19:58 | PN ---
GI Progress Note Subjective: Patient states she was feeling well until this AM when she started clear liquids. After meal she became nauseouis and developed suprapubic/RLQ pain. She is not haveing bloody stools - Objective Vital Signs: Vital Signs Temperature 98.4 F 11/23/16 13:33 Pulse Rate 66 11/23/16 13:33 Respiratory Rate 20 11/23/16 13:33 Blood Pressure 109/67 11/23/16 13:33 O2 Sat by Pulse Oximetry (%) 94 L 11/23/16 09:00 Constitutional: Well Nourished, Anxious Neck: Yes: Supple Cardiovascular: Yes: Regular Rate and Rhythm Respiratory: Yes: CTA Bilaterally Gastrointestinal Inspection: Yes: WNL ...Auscultate: Yes: Normoactive Bowel Sounds ...Palpate: Yes: Soft, Tenderness (suprapubic/RLQ. No rebound) Labs: CBC, BMP 11/23/16 08:45 11/23/16 08:45 Assessment/Plan 61 F with h/o prescription opiate abuse, on oxy 30 QID now with nausea and lower abdominal pain Receiving percocet 10 QID here Now with colitis on CT. Leukocytosis has resolved Hold clears and resume IVF for now CTA to r/o ischemic etiology Utox now-r/o cocaine
[2016-11-23] MEDS: ZOLPIDEM TARTRATE 5 MG TABLET PO PRN (21:14)
--- NOTE | 2016-11-23 23:24 | PN ---
Progress Note (short form) - Note Progress Note: PAtient seen and examined Denies any complaints Last Vital Signs Temp Pulse Resp BP Pulse Ox 97.2 F L 72 18 92/63 96 11/24/16 09:28 11/24/16 09:28 11/24/16 09:28 11/24/16 09:28 11/23/16 19:58 Cor: RSR, No murmurs, No gallops Lungs: Clear to P&A Abd: Soft, Normal bowel sounds, No organomegaly Ext:No significant edema Skin: No rashes, Integument intact Labs/meds reviewed A/P 61 y/o patient with infectious lt. sided colitis ?r/o ischemic per gi team wbc trending down ? hiv testing getting cta thrombophilia w/u in progress
[2016-11-24] MEDS ORDERED: PT OWN MED DRAWER 7, Y5N ONE ×3 (00:48→17:40)
[2016-11-24] MEDS: oxyCODONE HCL 5 MG TABLET PO PRN ×5 (01:57→20:50)
[2016-11-24] MEDS: METRONIDAZOLE PREMIXED IVPB 50 ML IVPB SCH ×3 (01:58→17:46)
[2016-11-24] MEDS: D5-NS + 20 MEQ KCL - 1,000 ML IV SCH ×3 (05:31→16:53)
[2016-11-24 09:09] LABS: URINE MARIJUANA THC NEGATIVE ng/ml (CUTOFF=50)
[2016-11-24] MEDS: HEPARIN NA (PORCINE) 5,000 UNITS/ML 1ML VIAL SQ SCH ×2 (10:23→21:11)
[2016-11-24] MEDS: CEFTRIAXONE 100 ML IVPB SCH (10:24)
--- NOTE | 2016-11-24 12:05 | PN ---
Progress Note, Physician History of Present Illness: FEELS BETTER TODAT HAD PAIN YESTERDAY WHICH HAS IMPROVED - Current Medication List Current Medications: Active Medications Heparin Sodium (Porcine) (Heparin -) 5,000 unit SQ BID [facility] Last Admin: 11/24/16 10:23 Dose: 5,000 unit Metronidazole (Flagyl 250mg Premixed Ivpb -) 50 mls @ 50 mls/hr IVPB Q8H-IV [facility] Last Admin: 11/24/16 10:23 Dose: 50 mls/hr Dextrose/Sodium Chloride (Dextrose 5%-Normal Saline+20 Meq Kcl -) 1,000 mls @ 150 mls/hr IV ASDIR [facility] Last Admin: 11/24/16 05:31 Dose: 150 mls/hr Ceftriaxone Sodium (Rocephin 2gm Ivpb (Pre-Docked)) 100 mls @ 200 mls/hr IVPB DAILY [facility] Last Admin: 11/23/16 09:45 Dose: 200 mls/hr Ondansetron HCl (Zofran Injection) 4 mg IVPB Q6H PRN PRN Reason: NAUSEA Oxycodone HCl (Roxicodone -) 10 mg PO Q4H PRN PRN Reason: PAIN Last Admin: 11/24/16 10:22 Dose: 10 mg Zolpidem Tartrate (Ambien -) 5 mg PO HS PRN PRN Reason: INSOMNIA Last Admin: 11/23/16 21:14 Dose: 5 mg - Objective Vital Signs: Vital Signs Temperature 97.2 F L 11/24/16 09:28 Pulse Rate 72 11/24/16 09:28 Respiratory Rate 18 11/24/16 09:28 Blood Pressure 92/63 11/24/16 09:28 O2 Sat by Pulse Oximetry (%) 96 11/23/16 19:58 Cardiovascular: Yes: Regular Rate and Rhythm Respiratory: Yes: Regular, CTA Bilaterally Gastrointestinal: Yes: Normal Bowel Sounds, Soft, Tenderness (LESS--MORE SUPRAPUBIC) Labs: CBC, BMP 11/23/16 08:45 11/23/16 08:45 Problem List - Problems (1) Colitis Assessment/Plan: R/O INFECTIOUS ETIOLOGY VS LOW FLOW STATE IVF IV ABX NPO GI CONSULT ID CONSULT Code(s): K52.9 - NONINFECTIVE GASTROENTERITIS AND COLITIS, UNSPECIFIED (2) Abdominal pain Assessment/Plan: SEE ABOVE CTA Code(s): R10.9 - UNSPECIFIED ABDOMINAL PAIN (3) Leukocytosis Assessment/Plan: MONITOR IMPROVED CBC WBC 5.1 K/mm3 (4.0-10.0) 11/23/16 08:45 RBC 3.84 M/mm3 (3.60-5.2) 11/23/16 08:45 Hgb 12.5 GM/dL (10.7-15.3) 11/23/16 08:45 Hct 37.3 % (32.4-45.2) 11/23/16 08:45 MCV 97.2 fl (80-96) H 11/23/16 08:45 MCHC 33.4 g/dl (32.0-36.0) 11/23/16 08:45 RDW 12.2 % (11.6-15.6) 11/23/16 08:45 Plt Count 176 K/MM3 (134-434) 11/23/16 08:45 MPV 9.4 fl (7.5-11.1) 11/23/16 08:45 Neutrophils % 61.0 % (42.8-82.8) 11/23/16 08:45 Lymphocytes % 22.8 % (8-40) 11/23/16 08:45 Monocytes % 12.3 % (3.8-10.2) H 11/23/16 08:45 Eosinophils % 3.5 % (0-4.5) 11/23/16 08:45 Basophils % 0.4 % (0-2.0) 11/23/16 08:45 ESR 11 mm/hr (0-30) 11/22/16 07:00 Code(s): D72.829 - ELEVATED WHITE BLOOD CELL COUNT, UNSPECIFIED
--- NOTE | 2016-11-24 12:51 | PN ---
Progress Note (short form) - Note Progress Note: Seen in follow up. Abdominal pain improved. No diarrhea. Meds reviewed. Current Medications Generic Name Dose Route Start Last Admin Trade Name Freq PRN Reason Stop Dose Admin Heparin Sodium (Porcine) 5,000 unit 11/21/16 22:00 11/24/16 10:23 Heparin - SQ 5,000 unit BID [facility] Administration Metronidazole 50 mls @ 50 mls/hr 11/22/16 02:00 11/24/16 10:23 Flagyl 250mg Premixed Ivpb - IVPB 50 mls/hr Q8H-IV [facility] Administration Dextrose/Sodium Chloride 1,000 mls @ 150 mls/hr 11/22/16 08:00 11/24/16 05:31 Dextrose 5%-Normal Saline+20 Meq Kcl - IV 150 mls/hr ASDIR [facility] Administration Ceftriaxone Sodium 100 mls @ 200 mls/hr 11/22/16 12:30 11/24/16 10:24 Rocephin 2gm Ivpb (Pre-Docked) IVPB 200 mls/hr DAILY [facility] Administration Ondansetron HCl 4 mg 11/21/16 17:59 Zofran Injection IVPB Q6H PRN NAUSEA Oxycodone HCl 10 mg 11/21/16 17:59 11/24/16 10:22 Roxicodone - PO 10 mg Q4H PRN Administration PAIN Zolpidem Tartrate 5 mg 11/21/16 21:05 11/23/16 21:14 Ambien - PO 5 mg HS PRN Administration INSOMNIA On exam: Last Vital Signs Temp Pulse Resp BP Pulse Ox 97.2 F L 72 18 92/63 96 11/24/16 09:28 11/24/16 09:28 11/24/16 09:28 11/24/16 09:28 11/24/16 09:00 General: In no acute distress. Extremities: No pallor or icterus, no pedal edema. Chest:breathing comfortably Abdomen: non-distended Neuro: Alert, oriented, non-focal. 11/23/16 08:45 11/23/16 08:45 Assessment. Patient with acute presentation abdominal pain, diarrhea, and leukocytosis, c/w colitis, now resolved on Abics. Low index of suspicion for ischemic colitis - thrombophilia workup ordered and pending. CT this morning pending. Will follow.
--- NOTE | 2016-11-24 13:20 | PN ---
Progress Note (short form) - Note Progress Note: Just returned from ct scan reports less abdominal pain still some mucous in stools Vital Signs Period Temp Pulse Resp BP Sys/Atkinson Pulse Ox Last 24 Hr 97.2 F-99.2 F 66-72 18-20 92-115/63-71 96-96 cor-rrr lungs cleear abd soft,no distention some LLQ discomfort to palpation ext no edema CBC, BMP 11/23/16 08:45 11/23/16 08:45 Microbiology 11/22/16 12:30 Blood - Peripheral Venous Blood Culture - Preliminary NO GROWTH OBTAINED AFTER 48 HOURS, INCUBATION TO CONTINUE FOR 3 DAYS. 11/22/16 12:35 Blood - Peripheral Venous Blood Culture - Preliminary NO GROWTH OBTAINED AFTER 48 HOURS, INCUBATION TO CONTINUE FOR 3 DAYS. 11/22/16 15:15 Stool Clostridium difficile Antigen (PONCE) - Final 11/22/16 15:15 Stool Clostridium difficile Toxin Assay - Final 11/22/16 15:15 Stool Gram Stain - Final 11/22/16 15:15 Stool Salmonella/Shigella Culture - Preliminary NO ENTERIC PATHOGENS, 24 HOURS, ON PRIMARY PLATES 11/22/16 15:15 Stool Yersinia Culture - Preliminary NO ENTERIC PATHOGENS, 24 HOURS, ON PRIMARY PLATES 11/22/16 15:15 Stool Vibrio Culture - Preliminary NO ENTERIC PATHOGENS, 24 HOURS, ON PRIMARY PLATES 11/22/16 15:15 Stool Escherichia coli 0157 Culture - Preliminary NO ENTERIC PATHOGENS, 24 HOURS, ON PRIMARY PLATES a/p colitis continue rocephin/flagyl f/u CTA today r/o ischemic colitis no enteric pathogens isolated cdiff antigen postive toxin negative clinically improved
--- NOTE | 2016-11-24 14:27 | PN ---
GI Progress Note Subjective: still with mucoid stool.llq pain decreaed from admission, tolerating clears, C diff positive - Objective Vital Signs: Vital Signs Temperature 98.7 F 11/24/16 13:41 Pulse Rate 89 11/24/16 13:41 Respiratory Rate 18 11/24/16 09:28 Blood Pressure 118/75 11/24/16 13:41 O2 Sat by Pulse Oximetry (%) 96 11/24/16 09:00 Constitutional: Well Nourished Eyes: Yes: Conjunctiva Clear HENT: Yes: Atraumatic Neck: Yes: Trachea Midline Cardiovascular: Yes: Regular Rate and Rhythm Respiratory: Yes: CTA Bilaterally ...Palpate: Yes: Soft. No: Firm/Rigid, Guarding, Hepatomegaly, Mass, Pulsatile Mass, Splenomegaly, Tenderness, Tenderness, Epigastium Labs: CBC, BMP 11/23/16 08:45 11/23/16 08:45 Problem List - Problems (1) Diarrhea Assessment/Plan: secondary to C diff R> await CTA results advance diet as tolerated Code(s): R19.7 - DIARRHEA, UNSPECIFIED
[2016-11-24] MEDS: ZOLPIDEM TARTRATE 5 MG TABLET PO PRN (22:25)
[2016-11-25] MEDS: METRONIDAZOLE PREMIXED IVPB 50 ML IVPB SCH ×3 (02:15→17:07)
[2016-11-25] MEDS: D5-NS + 20 MEQ KCL - 1,000 ML IV SCH ×3 (02:15→21:31)
[2016-11-25] MEDS: oxyCODONE HCL 5 MG TABLET PO PRN ×5 (04:18→21:28)
--- NOTE | 2016-11-25 09:53 | PN ---
Progress Note (short form) - Note Progress Note: Seen in follow up. Abdominal pain improved. Ongoing mucus diarrhea And now reporting pain radiating to back. Meds reviewed. Current Medications Generic Name Dose Route Start Last Admin Trade Name Cayla PRN Reason Stop Dose Admin Heparin Sodium (Porcine) 5,000 unit 11/21/16 22:00 11/24/16 21:11 Heparin - SQ 5,000 unit BID [facility] Administration Metronidazole 50 mls @ 50 mls/hr 11/22/16 02:00 11/25/16 02:15 Flagyl 250mg Premixed Ivpb - IVPB 50 mls/hr Q8H-IV [facility] Administration Dextrose/Sodium Chloride 1,000 mls @ 150 mls/hr 11/22/16 08:00 11/25/16 02:15 Dextrose 5%-Normal Saline+20 Meq Kcl - IV 150 mls/hr ASDIR [facility] Administration Ceftriaxone Sodium 100 mls @ 200 mls/hr 11/22/16 12:30 11/24/16 10:24 Rocephin 2gm Ivpb (Pre-Docked) IVPB 200 mls/hr DAILY [facility] Administration Ondansetron HCl 4 mg 11/21/16 17:59 Zofran Injection IVPB Q6H PRN NAUSEA Oxycodone HCl 10 mg 11/24/16 20:42 11/25/16 08:35 Roxicodone - PO 10 mg Q4H PRN Administration PAIN Zolpidem Tartrate 5 mg 11/24/16 20:44 11/24/16 22:25 Ambien - PO 5 mg HS PRN Administration INSOMNIA On exam: Last Vital Signs Temp Pulse Resp BP Pulse Ox 98.3 F 58 L 18 104/74 97 11/25/16 08:06 11/25/16 08:06 11/25/16 08:06 11/25/16 08:06 11/24/16 20:54 General: In no acute distress. Extremities: No pallor or icterus, no pedal edema. Chest:breathing comfortably Abdomen: non-distended Neuro: Alert, oriented, non-focal. No new labs to review. CT scan yesterday reviewed: persistent colon wall thickening, no suggestion of vascular occlusion/thrombosis. Assessment. Patient with acute presentation abdominal pain, diarrhea, and leukocytosis, c/w colitis, now resolved on Abics. Low index of suspicion for ischemic colitis - thrombophilia workup ordered and pending. Will follow.
[2016-11-25] MEDS: HEPARIN NA (PORCINE) 5,000 UNITS/ML 1ML VIAL SQ SCH ×2 (10:42→21:28)
[2016-11-25] MEDS: CEFTRIAXONE 100 ML IVPB SCH (10:42)
--- NOTE | 2016-11-25 13:29 | PN ---
Progress Note (short form) - Note Progress Note: some abd pain radiating to back still some loose stools no antibiotics as an outpt!! Vital Signs Period Temp Pulse Resp BP Sys/Atkinson Pulse Ox Last 24 Hr 98.0 F-98.8 F 57-89 18-20 104-118/64-75 96-97 cor-rrr lungs clear abd soft,mild midepigastric discomfort to deep palpation ext no edema CBC, BMP 11/23/16 08:45 11/23/16 08:45 Microbiology 11/22/16 12:30 Blood - Peripheral Venous Blood Culture - Preliminary NO GROWTH OBTAINED AFTER 72 HOURS, INCUBATION TO CONTINUE FOR 2 DAYS. 11/22/16 12:35 Blood - Peripheral Venous Blood Culture - Preliminary NO GROWTH OBTAINED AFTER 72 HOURS, INCUBATION TO CONTINUE FOR 2 DAYS. 11/22/16 15:15 Stool Gram Stain - Final 11/22/16 15:15 Stool Salmonella/Shigella Culture - Final NO GROWTH OF SALMONELLA OR SHIGELLA SPECIES OBTAINED 11/22/16 15:15 Stool Campylobacter Culture - Final NO GROWTH OF CAMPYLOBACTER SPECIES OBTAINED 11/22/16 15:15 Stool Yersinia Culture - Final NO GROWTH OF YERSINIA SPECIES OBTAINED 11/22/16 15:15 Stool Vibrio Culture - Final NO GROWTH OF VIBRIO SPECIES OBTAINED 11/22/16 15:15 Stool Escherichia coli 0157 Culture - Final NO GROWTH OF E COLI 0157 OBTAINED 11/22/16 15:15 Stool Clostridium difficile Antigen (PONCE) - Final 11/22/16 15:15 Stool Clostridium difficile Toxin Assay - Final CTA- no definite vascular occlusion a/p colitis ?etiology she cannot recall the last time she ever took antibiotics making it unlikely to be CDIFF but she is toxin negative, antigen positive - this is an intermediate result, will send cdiff PCR today add po vancomycin for now GI f/u labs and llipase given location and pattern of pain
[2016-11-25 13:56] LABS: MCH 32.5 pg (25.7-33.7); MCHC 33.6 g/dl (32.0-36.0); MEAN CELL VOLUME 96.8 fl (80-96); PLATELET COUNT 201 K/MM3 (134-434); RDW 11.9 % (11.6-15.6); WHITE BLOOD COUNT 5.9 K/mm3 (4.0-10.0)
[2016-11-25] MEDS: VANCOMYCIN 250 MG/5 ML ORAL SOLUTION PO SCH ×2 (14:08→17:08)
[2016-11-25 14:39] LABS: ALK PHOS 74 U/L (45-117); ANION GAP 8 (8-16); BILIRUBIN,TOTAL 0.2 mg/dL (0.2-1.0); CALCIUM 8.5 mg/dL (8.5-10.1); CO2 25 mmol/L (21-32); CREATININE 0.6 mg/dL (0.55-1.02); GLUCOSE,RANDOM 147 mg/dL (74-106); SGOT/AST 25 U/L (15-37); TOT PROT 5.5 g/dl (6.4-8.2)
[2016-11-25 14:53] LABS: SGPT/ALT 25 U/L (12-78)
--- NOTE | 2016-11-25 16:13 | PN ---
GI Progress Note Subjective: abdominal pain much improved since admission, on Vanco po. CT reviewed, improved from admission. - Objective Vital Signs: Vital Signs Temperature 98.4 F 11/25/16 14:00 Pulse Rate 60 11/25/16 14:00 Respiratory Rate 18 11/25/16 08:06 Blood Pressure 106/69 11/25/16 14:00 O2 Sat by Pulse Oximetry (%) 96 11/25/16 09:00 Constitutional: Cachectic Eyes: Yes: Conjunctiva Clear HENT: Yes: Normocephalic Neck: Yes: Trachea Midline Cardiovascular: Yes: Regular Rate and Rhythm Respiratory: Yes: CTA Bilaterally ...Palpate: Yes: Soft. No: Firm/Rigid, Guarding, Hepatomegaly, Mass, Pulsatile Mass, Splenomegaly, Tenderness Labs: CBC, BMP 11/25/16 13:50 11/25/16 13:50 Problem List - Problems (1) Diarrhea Assessment/Plan: --resolving R> advance diet continue Vancomycin po Code(s): R19.7 - DIARRHEA, UNSPECIFIED
--- NOTE | 2016-11-25 16:23 | PN ---
Progress Note, Physician History of Present Illness: PAIN INTERMITTENT - Current Medication List Current Medications: Active Medications Heparin Sodium (Porcine) (Heparin -) 5,000 unit SQ BID [facility]RISTOS Last Admin: 11/25/16 10:42 Dose: 5,000 unit Metronidazole (Flagyl 250mg Premixed Ivpb -) 50 mls @ 50 mls/hr IVPB Q8H-IV [facility]STOS Last Admin: 11/25/16 10:42 Dose: 50 mls/hr Dextrose/Sodium Chloride (Dextrose 5%-Normal Saline+20 Meq Kcl -) 1,000 mls @ 150 mls/hr IV ASDIR [facility] Last Admin: 11/25/16 14:08 Dose: 150 mls/hr Ceftriaxone Sodium (Rocephin 2gm Ivpb (Pre-Docked)) 100 mls @ 200 mls/hr IVPB DAILY [facility] Last Admin: 11/25/16 10:42 Dose: 200 mls/hr Ondansetron HCl (Zofran Injection) 4 mg IVPB Q6H PRN PRN Reason: NAUSEA Oxycodone HCl (Roxicodone -) 10 mg PO Q4H PRN PRN Reason: PAIN Last Admin: 11/25/16 12:34 Dose: 10 mg Vancomycin HCl (Vancomycin Oral Solution) 250 mg PO Q6HPO [facility]STOS Last Admin: 11/25/16 14:08 Dose: 250 mg Zolpidem Tartrate (Ambien -) 5 mg PO HS PRN PRN Reason: INSOMNIA Last Admin: 11/24/16 22:25 Dose: 5 mg - Objective Vital Signs: Vital Signs Temperature 98.4 F 11/25/16 14:00 Pulse Rate 60 11/25/16 14:00 Respiratory Rate 18 11/25/16 08:06 Blood Pressure 106/69 11/25/16 14:00 O2 Sat by Pulse Oximetry (%) 96 11/25/16 09:00 Cardiovascular: Yes: Regular Rate and Rhythm Respiratory: Yes: Regular, CTA Bilaterally Gastrointestinal: Yes: Normal Bowel Sounds, Soft, Tenderness Labs: CBC, BMP 11/25/16 13:50 11/25/16 13:50 Problem List - Problems (1) Colitis Assessment/Plan: R/O INFECTIOUS ETIOLOGY VS LOW FLOW STATE Microbiology 11/22/16 12:30 Blood Culture - Preliminary Blood - Peripheral Venous NO GROWTH OBTAINED AFTER 72 HOURS, INCUBATION TO CONTINUE FOR 2 DAYS. 11/22/16 12:35 Blood Culture - Preliminary Blood - Peripheral Venous NO GROWTH OBTAINED AFTER 72 HOURS, INCUBATION TO CONTINUE FOR 2 DAYS. 11/22/16 15:15 Gram Stain - Final Stool Salmonella/Shigella Culture - Final NO GROWTH OF SALMONELLA OR SHIGELLA SPECIES OBTAINED Campylobacter Culture - Final NO GROWTH OF CAMPYLOBACTER SPECIES OBTAINED Yersinia Culture - Final NO GROWTH OF YERSINIA SPECIES OBTAINED Vibrio Culture - Final NO GROWTH OF VIBRIO SPECIES OBTAINED Escherichia coli 0157 Culture - Final NO GROWTH OF E COLI 0157 OBTAINED 11/22/16 15:15 Clostridium difficile Antigen (PONCE) - Final POSITIVE AG Stool Clostridium difficile Toxin Assay - Final NEGATIVE TOXIN IVF IV ABX DIET PER GI GI CONSULT ID CONSULT--D/W DR OLSON REGARDING PO VANCO/FLAGYL Code(s): K52.9 - NONINFECTIVE GASTROENTERITIS AND COLITIS, UNSPECIFIED (2) Abdominal pain Code(s): R10.9 - UNSPECIFIED ABDOMINAL PAIN (3) Leukocytosis Code(s): D72.829 - ELEVATED WHITE BLOOD CELL COUNT, UNSPECIFIED
[2016-11-25] MEDS ORDERED: PT OWN MED DRAWER 7, Y5N ONE (17:05)
[2016-11-25] MEDS: ZOLPIDEM TARTRATE 5 MG TABLET PO PRN (22:19)
[2016-11-26 00:06] LABS: ANTITHROMBIN III 98 % (75-135)
[2016-11-26] MEDS: VANCOMYCIN 250 MG/5 ML ORAL SOLUTION PO SCH ×4 (00:26→17:40)
[2016-11-26] MEDS: METRONIDAZOLE PREMIXED IVPB 50 ML IVPB SCH (01:16)
[2016-11-26] MEDS: oxyCODONE HCL 5 MG TABLET PO PRN ×5 (05:07→21:58)
[2016-11-26] MEDS: D5-NS + 20 MEQ KCL - 1,000 ML IV SCH ×2 (05:09→13:43)
--- NOTE | 2016-11-26 08:07 | PN ---
Progress Note, Physician History of Present Illness: PAIN INTERMITTENT - Current Medication List Current Medications: Active Medications Heparin Sodium (Porcine) (Heparin -) 5,000 unit SQ BID CHRISTOS Last Admin: 11/25/16 21:28 Dose: 5,000 unit Dextrose/Sodium Chloride (Dextrose 5%-Normal Saline+20 Meq Kcl -) 1,000 mls @ 150 mls/hr IV ASDIR [facility] Last Admin: 11/26/16 05:09 Dose: 150 mls/hr Ceftriaxone Sodium (Rocephin 2gm Ivpb (Pre-Docked)) 100 mls @ 200 mls/hr IVPB DAILY [facility] Last Admin: 11/25/16 10:42 Dose: 200 mls/hr Metronidazole (Flagyl 500mg Premixed Ivpb -) 100 mls @ 100 mls/hr IVPB Q8H-IV CHRISTOS Ondansetron HCl (Zofran Injection) 4 mg IVPB Q6H PRN PRN Reason: NAUSEA Oxycodone HCl (Roxicodone -) 10 mg PO Q4H PRN PRN Reason: PAIN Last Admin: 11/26/16 05:07 Dose: 10 mg Vancomycin HCl (Vancomycin Oral Solution) 250 mg PO Q6HPO CHRISTOS Last Admin: 11/26/16 05:08 Dose: 250 mg Zolpidem Tartrate (Ambien -) 5 mg PO HS PRN PRN Reason: INSOMNIA Last Admin: 11/25/16 22:19 Dose: 5 mg - Objective Vital Signs: Vital Signs Temperature 98.6 F 11/26/16 08:00 Pulse Rate 62 11/26/16 08:00 Respiratory Rate 18 11/26/16 08:00 Blood Pressure 114/71 11/26/16 08:00 O2 Sat by Pulse Oximetry (%) 96 11/25/16 21:00 Cardiovascular: Yes: Regular Rate and Rhythm Respiratory: Yes: Regular, CTA Bilaterally Gastrointestinal: Yes: Normal Bowel Sounds, Soft, Tenderness (llq and epigastric ) Labs: CBC, BMP 11/25/16 13:50 11/25/16 13:50 Problem List - Problems (1) Colitis Assessment/Plan: R/O INFECTIOUS ETIOLOGY VS LOW FLOW STATE Microbiology 11/22/16 12:30 Blood Culture - Preliminary Blood - Peripheral Venous NO GROWTH OBTAINED AFTER 72 HOURS, INCUBATION TO CONTINUE FOR 2 DAYS. 11/22/16 12:35 Blood Culture - Preliminary Blood - Peripheral Venous NO GROWTH OBTAINED AFTER 72 HOURS, INCUBATION TO CONTINUE FOR 2 DAYS. 11/22/16 15:15 Gram Stain - Final Stool Salmonella/Shigella Culture - Final NO GROWTH OF SALMONELLA OR SHIGELLA SPECIES OBTAINED Campylobacter Culture - Final NO GROWTH OF CAMPYLOBACTER SPECIES OBTAINED Yersinia Culture - Final NO GROWTH OF YERSINIA SPECIES OBTAINED Vibrio Culture - Final NO GROWTH OF VIBRIO SPECIES OBTAINED Escherichia coli 0157 Culture - Final NO GROWTH OF E COLI 0157 OBTAINED 11/22/16 15:15 Clostridium difficile Antigen (PONCE) - Final POSITIVE AG Stool Clostridium difficile Toxin Assay - Final NEGATIVE TOXIN IVF IV ABX DIET PER GI GI CONSULT ID CONSULT--D/W DR OLSON ON PO VANCO Code(s): K52.9 - NONINFECTIVE GASTROENTERITIS AND COLITIS, UNSPECIFIED (2) Abdominal pain Assessment/Plan: SEE ABOVE CTA NOTED MRI ORDERED BY DR GU Code(s): R10.9 - UNSPECIFIED ABDOMINAL PAIN (3) Leukocytosis Assessment/Plan: MONITOR IMPROVED CBC WBC 5.9 K/mm3 (4.0-10.0) 11/25/16 13:50 RBC 3.89 M/mm3 (3.60-5.2) 11/25/16 13:50 Hgb 12.7 GM/dL (10.7-15.3) 11/25/16 13:50 Hct 37.6 % (32.4-45.2) 11/25/16 13:50 MCV 96.8 fl (80-96) H 11/25/16 13:50 MCHC 33.6 g/dl (32.0-36.0) 11/25/16 13:50 RDW 11.9 % (11.6-15.6) 11/25/16 13:50 Plt Count 201 K/MM3 (134-434) 11/25/16 13:50 MPV 9.0 fl (7.5-11.1) 11/25/16 13:50 Neutrophils % 61.0 % (42.8-82.8) 11/23/16 08:45 Lymphocytes % 22.8 % (8-40) 11/23/16 08:45 Monocytes % 12.3 % (3.8-10.2) H 11/23/16 08:45 Eosinophils % 3.5 % (0-4.5) 11/23/16 08:45 Basophils % 0.4 % (0-2.0) 11/23/16 08:45 ESR 11 mm/hr (0-30) 11/22/16 07:00 Code(s): D72.829 - ELEVATED WHITE BLOOD CELL COUNT, UNSPECIFIED
[2016-11-26] MEDS: CEFTRIAXONE 100 ML IVPB SCH (09:24)
[2016-11-26] MEDS: METRONIDAZOLE 500 MG PREMIXED 100 ML IVPB SCH ×2 (09:24→17:40)
[2016-11-26] MEDS: HEPARIN NA (PORCINE) 5,000 UNITS/ML 1ML VIAL SQ SCH ×2 (09:25→21:58)
--- NOTE | 2016-11-26 11:10 | PN ---
Progress Note (short form) - Note Progress Note: less abdominal pain reports diarrhea every time she eats Vital Signs Period Temp Pulse Resp BP Sys/Atkinson Pulse Ox Last 24 Hr 98.1 F-98.6 F 53-62 18-20 106-115/67-74 96-97 cor-rrr lungs clear abd soft,no distention, +bm, rlq discomfort to palpation ext no edema CBC, BMP 11/25/16 13:50 11/25/16 13:50 Microbiology 11/22/16 12:30 Blood - Peripheral Venous Blood Culture - Preliminary NO GROWTH OBTAINED AFTER 72 HOURS, INCUBATION TO CONTINUE FOR 2 DAYS. 11/22/16 12:35 Blood - Peripheral Venous Blood Culture - Preliminary NO GROWTH OBTAINED AFTER 72 HOURS, INCUBATION TO CONTINUE FOR 2 DAYS. 11/22/16 15:15 Stool Gram Stain - Final 11/22/16 15:15 Stool Salmonella/Shigella Culture - Final NO GROWTH OF SALMONELLA OR SHIGELLA SPECIES OBTAINED 11/22/16 15:15 Stool Campylobacter Culture - Final NO GROWTH OF CAMPYLOBACTER SPECIES OBTAINED 11/22/16 15:15 Stool Yersinia Culture - Final NO GROWTH OF YERSINIA SPECIES OBTAINED 11/22/16 15:15 Stool Vibrio Culture - Final NO GROWTH OF VIBRIO SPECIES OBTAINED 11/22/16 15:15 Stool Escherichia coli 0157 Culture - Final NO GROWTH OF E COLI 0157 OBTAINED 11/22/16 15:15 Stool Clostridium difficile Antigen (PONCE) - Final 11/22/16 15:15 Stool Clostridium difficile Toxin Assay - Final CTA- no definite vascular occlusion a/p colitis ?etiology- she cannot recall the last time she ever took antibiotics making it less likely to be cdiff but she is toxin negative, antigen positive - this is an intermediate result, cdiff pcr sent GI f/u-?inflammatory bowel disease, check esr/crp for MRI check norovirus pcr d/w Dr Clements, will d/c ceftriaxone
[2016-11-26 14:13] LABS: BETA-2-GLYCOPROTEIN I IGA <9 (0-25); LAC INTERPRETATION Comment: (.); PROTEIN C ACTIVITY 94 % (73-180); PROTEIN S FREE 51 % (57-157); PROTEIN S FUNCTIONAL 25 % (63-140); PROTEIN S TOTAL 80 % (60-150)
--- NOTE | 2016-11-26 20:15 | PN ---
Progress Note (short form) - Note Progress Note: PAtient seen and examined overall improved Last Vital Signs Temp Pulse Resp BP Pulse Ox 98.1 F 87 20 115/77 97 11/26/16 17:00 11/26/16 17:00 11/26/16 17:00 11/26/16 17:00 11/26/16 09:00 Cor: RSR, No murmurs, No gallops Lungs: Clear to P&A Abd: Soft, Normal bowel sounds, No organomegaly Ext:No significant edema Abnormal Lab Results 11/23/16 08:00 Functional Protein S 25 L Free Protein S 51 L Active Medications Generic Name Dose Route Start Last Admin Trade Name Freq PRN Reason Stop Dose Admin Heparin Sodium (Porcine) 5,000 unit 11/21/16 22:00 11/26/16 09:25 Heparin - SQ 5,000 unit BID CHRISTOS Administration Dextrose/Sodium Chloride 1,000 mls @ 150 mls/hr 11/22/16 08:00 11/26/16 13:43 Dextrose 5%-Normal Saline+20 Meq Kcl - IV 150 mls/hr ASDIR [facility]OS Administration Metronidazole 100 mls @ 100 mls/hr 11/26/16 10:00 11/26/16 17:40 Flagyl 500mg Premixed Ivpb - IVPB 100 mls/hr Q8H-IV CH[facility]STOS Administration Ondansetron HCl 4 mg 11/21/16 17:59 Zofran Injection IVPB Q6H PRN NAUSEA Oxycodone HCl 10 mg 11/24/16 20:42 11/26/16 17:40 Roxicodone - PO 10 mg Q4H PRN Administration PAIN Vancomycin HCl 250 mg 11/25/16 14:00 11/26/16 17:40 Vancomycin Oral Solution PO 250 mg Q6HPO CHRISTOS Administration Zolpidem Tartrate 5 mg 11/24/16 20:44 11/25/16 22:19 Ambien - PO 5 mg HS PRN Administration INSOMNIA A/P 61 y/o patient with Lt. 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 acute phase Protein C/ATIII--nl await other studies also with chronic pericardial effusion --w/u per primary team also s/p cholecystectomy, dilated bile ducts--chronic. last MRI 04/18 . F/U pe GI team intermittent Leukocytosis--baseline ? smoking will recheck mutations -- JAK2/MPL/CALR as outpatient
[2016-11-26] MEDS: ZOLPIDEM TARTRATE 5 MG TABLET PO PRN (21:58)
[2016-11-27] MEDS: METRONIDAZOLE 500 MG PREMIXED 100 ML IVPB SCH ×2 (01:10→09:38)
[2016-11-27] MEDS: D5-NS + 20 MEQ KCL - 1,000 ML IV SCH (01:47)
[2016-11-27] MEDS: oxyCODONE HCL 5 MG TABLET PO PRN ×3 (05:49→13:41)
[2016-11-27] MEDS: VANCOMYCIN 250 MG/5 ML ORAL SOLUTION PO SCH ×3 (05:49→12:15)
--- NOTE | 2016-11-27 08:15 | PN ---
Progress Note, Physician History of Present Illness: PAIN INTERMITTENT--LESS TODAY TOLERATING DIET - Current Medication List Current Medications: Active Medications Heparin Sodium (Porcine) (Heparin -) 5,000 unit SQ BID CHRISTOS Last Admin: 11/26/16 21:58 Dose: 5,000 unit Dextrose/Sodium Chloride (Dextrose 5%-Normal Saline+20 Meq Kcl -) 1,000 mls @ 150 mls/hr IV ASDIR [facility] Last Admin: 11/27/16 01:47 Dose: 150 mls/hr Metronidazole (Flagyl 500mg Premixed Ivpb -) 100 mls @ 100 mls/hr IVPB Q8H-IV [facility]STOS Last Admin: 11/27/16 01:10 Dose: 100 mls/hr Ondansetron HCl (Zofran Injection) 4 mg IVPB Q6H PRN PRN Reason: NAUSEA Oxycodone HCl (Roxicodone -) 10 mg PO Q4H PRN PRN Reason: PAIN Last Admin: 11/27/16 05:49 Dose: 10 mg Vancomycin HCl (Vancomycin Oral Solution) 250 mg PO Q6HPO [facility]STOS Last Admin: 11/27/16 05:49 Dose: 250 mg Zolpidem Tartrate (Ambien -) 5 mg PO HS PRN PRN Reason: INSOMNIA Last Admin: 11/26/16 21:58 Dose: 5 mg - Objective Vital Signs: Vital Signs Temperature 98.3 F 11/27/16 06:00 Pulse Rate 61 11/27/16 06:00 Respiratory Rate 20 11/27/16 06:00 Blood Pressure 111/75 11/27/16 06:00 O2 Sat by Pulse Oximetry (%) 98 11/26/16 21:00 Gastrointestinal: Yes: Normal Bowel Sounds, Soft, Tenderness (LESS) Labs: CBC, BMP 11/25/16 13:50 11/25/16 13:50 Problem List - Problems (1) Colitis Assessment/Plan: R/O INFECTIOUS ETIOLOGY VS LOW FLOW STATE Microbiology 11/22/16 12:30 Blood Culture - Preliminary Blood - Peripheral Venous NO GROWTH OBTAINED AFTER 72 HOURS, INCUBATION TO CONTINUE FOR 2 DAYS. 11/22/16 12:35 Blood Culture - Preliminary Blood - Peripheral Venous NO GROWTH OBTAINED AFTER 72 HOURS, INCUBATION TO CONTINUE FOR 2 DAYS. 11/22/16 15:15 Gram Stain - Final Stool Salmonella/Shigella Culture - Final NO GROWTH OF SALMONELLA OR SHIGELLA SPECIES OBTAINED Campylobacter Culture - Final NO GROWTH OF CAMPYLOBACTER SPECIES OBTAINED Yersinia Culture - Final NO GROWTH OF YERSINIA SPECIES OBTAINED Vibrio Culture - Final NO GROWTH OF VIBRIO SPECIES OBTAINED Escherichia coli 0157 Culture - Final NO GROWTH OF E COLI 0157 OBTAINED 11/22/16 15:15 Clostridium difficile Antigen (PONCE) - Final POSITIVE AG Stool Clostridium difficile Toxin Assay - Final NEGATIVE TOXIN IVF IV ABX--OFF ROCEPHIN--ON FLAGYL AND PO VANCO AWAIT MRI DIET PER GI GI CONSULT ID CONSULT--D/W DR OLSON ON PO VANCO Code(s): K52.9 - NONINFECTIVE GASTROENTERITIS AND COLITIS, UNSPECIFIED (2) Abdominal pain Assessment/Plan: SEE ABOVE CTA NOTED MRI ORDERED BY DR GU Code(s): R10.9 - UNSPECIFIED ABDOMINAL PAIN (3) Leukocytosis Assessment/Plan: MONITOR IMPROVED CBC WBC 5.9 K/mm3 (4.0-10.0) 11/25/16 13:50 RBC 3.89 M/mm3 (3.60-5.2) 11/25/16 13:50 Hgb 12.7 GM/dL (10.7-15.3) 11/25/16 13:50 Hct 37.6 % (32.4-45.2) 11/25/16 13:50 MCV 96.8 fl (80-96) H 11/25/16 13:50 MCHC 33.6 g/dl (32.0-36.0) 11/25/16 13:50 RDW 11.9 % (11.6-15.6) 11/25/16 13:50 Plt Count 201 K/MM3 (134-434) 11/25/16 13:50 MPV 9.0 fl (7.5-11.1) 11/25/16 13:50 Neutrophils % 61.0 % (42.8-82.8) 11/23/16 08:45 Lymphocytes % 22.8 % (8-40) 11/23/16 08:45 Monocytes % 12.3 % (3.8-10.2) H 11/23/16 08:45 Eosinophils % 3.5 % (0-4.5) 11/23/16 08:45 Basophils % 0.4 % (0-2.0) 11/23/16 08:45 ESR 11 mm/hr (0-30) 11/22/16 07:00 Code(s): D72.829 - ELEVATED WHITE BLOOD CELL COUNT, UNSPECIFIED (4) Elevated CEA Assessment/Plan: COLON ONCE ACUTE EPISODE RESOLVES--4-6 WEEKS Code(s): R97.0 - ELEVATED CARCINOEMBRYONIC ANTIGEN [CEA]
[2016-11-27 10:58] VITALS: BP 94/62
[2016-11-27] MEDS ORDERED: PT OWN MED DRAWER 7, Y5N ONE (12:10)
[2016-11-27] MEDS: HEPARIN NA (PORCINE) 5,000 UNITS/ML 1ML VIAL SQ SCH (12:15)
[2016-11-27 14:15] VITALS: PULSE 68; TEMP 98.8
--- NOTE | 2016-11-27 14:16 | PN ---
GI Progress Note Subjective: patient has PMHG of reflex sympathetic dystrophy and is on chronic pain meds, she has elevated CEA level to 5 but is a chronic smoker, diarrhea and abdominal pain has resolved - Objective Vital Signs: Vital Signs Temperature 98.9 F 11/27/16 10:00 Pulse Rate 62 11/27/16 10:00 Respiratory Rate 20 11/27/16 10:00 Blood Pressure 94/62 11/27/16 10:00 O2 Sat by Pulse Oximetry (%) 98 11/26/16 21:00 Constitutional: Well Nourished Eyes: Yes: Conjunctiva Clear HENT: Yes: Atraumatic Neck: Yes: Supple Cardiovascular: Yes: Regular Rate and Rhythm Respiratory: Yes: CTA Bilaterally Labs: CBC, BMP 11/25/16 13:50 11/25/16 13:50 Problem List - Problems (1) Diarrhea Code(s): R19.7 - DIARRHEA, UNSPECIFIED (2) Dilated cbd, acquired Assessment/Plan: etiology secondary to chronic opiod use R> MRCP --done official read is pending, reviewed MRCP Code(s): K83.8 - OTHER SPECIFIED DISEASES OF BILIARY TRACT
--- NOTE | 2016-11-27 16:14 | DS ---
Physical Examination Vital Signs: Vital Signs Temperature 98.8 F 11/27/16 14:08 Pulse Rate 68 11/27/16 14:08 Respiratory Rate 20 11/27/16 14:08 Blood Pressure 94/62 11/27/16 10:00 O2 Sat by Pulse Oximetry (%) 98 11/26/16 21:00 Labs: CBC, BMP 11/25/16 13:50 11/25/16 13:50 Discharge Summary Reason For Visit: COLITIS Current Active Problems Abdominal pain (Acute) Colitis (Acute) Diarrhea (Acute) Dilated cbd, acquired (Acute) Elevated CEA (Acute) Leukocytosis (Acute) - Instructions Referrals: Shelia Cason MD [Staff Physician] - - Home Medications Comprehensive Discharge Medication List: Ambulatory Orders Zolpidem Tartrate [Ambien] 5 mg PO HS PRN 07/28/13 Oxycodone HCl 30 mg PO QID 07/12/15 Aspirin [[place] Chewable Aspirin] 81 mg PO DAILY 11/19/16 Cephalexin Monohydrate [Keflex -] 500 mg PO BID #8 capsule 11/19/16 Vancomycin HCl 250 mg PO QID #40 capsule 11/27/16
== END 2016-11-27 17:06 | disposition home or self-care (01) | DRG 249 ==
LOC: JER 15:05 → JERBED 16:10 → J6S 20:51
PROVIDERS: ADMIT Family Medicine; ATTEND Family Medicine
DX: A09 Infectious gastroenteritis and colitis, unspecified (principal); D72.829 Elevated white blood cell count, unspecified; F17.210 Nicotine dependence, cigarettes, uncomplicated; R10.32 Left lower quadrant pain; I31.3 Pericardial effusion (noninflammatory)
CPT/HCPCS: 36415; 74174-TC; 74183-TC; 80053; 80307; 81240; 81241; 82272; 82378; 83036; 83605; 83690; 84443; 85025; 85027; 85300; 85302; 85303; 85305; 85306; 85613; 85651; 85732; 86140; 86146; 86301; 86304; 87040; 87045; 87046; 87205; 87324; 87425; 87449; 87493; 87798; 93005; 93010; 99284-25; J1644; Q9967

== ENCOUNTER 2019-02-19 14:00 | Emergency (ER) | payer OTHER ==
[2019-02-19 15:09] VITALS: BP 113/79; PULSE 68; TEMP 98; BMI 18.4
--- NOTE | 2019-02-19 16:02 | PDOC ---
History of Present Illness - General Chief Complaint: Syncope/Near Syncope Stated Complaint: SYNCOPE Time Seen by Provider: 02/19/19 16:02 History Source: Patient Exam Limitations: No Limitations - History of Present Illness Initial Comments: 63 year old female with no reported PMH presented to ED for pre-syncopal episode occurring just CARD HAND. Pt reported a feeling of lightheadedness just CARD HAND, without chest pain, without shortness of breath, without palpitations, no recent nausea/vomiting/diarrhea/fever/illness/travel. Pt reported complete resolution of symptoms with 500 cc normal saline bolus. Pt reported she would not like any other lab/imaging testing and would like to go home. ROS General: denied fever, chills, generalized weakness. HEENT: denied sore throat, rhinorrhea, ear pain. Cardiovascular: [facility] to [facility]. denied chest pain, palpitations, syncope, diaphoresis. Respiratory: denied shortness of breath, cough, sputum production, hemoptysis. Gastrointestinal: denied abdominal pain, nausea, vomiting, diarrhea, constipation, blood in stool. Genitourinary: denied dysuria, increased urinary frequency, hematuria, urinary incontinence, flank pain. Back: denied back pain. Musculoskeletal: denied joint pain, muscle pain, joint swelling. Neurological: denied headache, dizziness, numbness, tingling, weakness. Integumentary: denied rash, laceration, abrasion. Hematologic/Lymphatic: denied bruising or bleeding. PE Constitutional: Well-nourished, Well-developed, appearing stated age. HEENT: head is normocephalic, atraumatic. EOMI. PERRLA. Neck: supple. Full ROM. Cardiovascular: regular heart rhythm. no murmurs. no pericardial friction rub. Respiratory: clear to auscultation bilaterally. no crackles, rhonchi or wheezing. no stridor. Gastrointestinal: soft, nontender. normal bowel sounds. no rebound, guarding, masses. Extremities: peripheral pulses intact. no lower extremity edema. Neurological: CN 2-12 grossly intact. moves all four extremities. Psych: awake, alert, oriented x3. follows commands. answers questions appropriately. Past History - Past Medical History Allergies/Adverse Reactions: Allergies Allergy/AdvReac Type Severity Reaction Status Date / Time codeine AdvReac Verified 11/21/16 15:11 Home Medications: Ambulatory Orders Zolpidem Tartrate [Ambien] 5 mg PO HS PRN 07/28/13 Anemia: No Asthma: No Cancer: No Cardiac Disorders: No CVA: No COPD: No CHF: No Dementia: No Diabetes: No GI Disorders: Yes (INTERNAL HEMORRHOIDS,POLYPS) Disorders: No HTN: No Hypercholesterolemia: No Liver Disease: No Seizures: No Thyroid Disease: No - Surgical History Abdominal Surgery: Yes Appendectomy: No Cardiac Surgery: No Cholecystectomy: Yes Lung Surgery: No Neurologic Surgery: Yes (NECK SX) Orthopedic Surgery: No - Immunization History Immunization Up to Date: Yes - Suicide/Smoking/Psychosocial Hx Smoking History: Current every day smoker Have you smoked in the past 12 months: Yes Number of Cigarettes Smoked Daily: 10 Information on smoking cessation initiated: No 'Breaking Loose' booklet given: 11/21/16 Hx Alcohol Use: No Drug/Substance Use Hx: No Substance Use Type: None Hx Substance Use Treatment: No *Physical Exam - Vital Signs Last Vital Signs Temp Pulse Resp BP Pulse Ox 98 F 68 18 113/79 95 02/19/19 15:04 02/19/19 15:04 02/19/19 15:04 02/19/19 15:04 02/19/19 15:04 Medical Decision Making - Medical Decision Making 63 year old female with above PMH presented to ED for lightheadedness, received 500 cc normal saline, now requesting to leave. Initial Vital Signs Temp Pulse Resp BP Pulse Ox 98 F 68 18 113/79 95 02/19/19 15:04 02/19/19 15:04 02/19/19 15:04 02/19/19 15:04 02/19/19 15:04 Afebrile. No tachycardia. No tachypnea. No hypotension. No hypoxia on room air. Labs ordered: CBC, CMP, troponin, BNP Imaging ordered: CXR Medications ordered: none EKG performed at 1431: rate 67, regular rhythm, normal axis, normal intervals, no acute ST changes. Pt refused blood work, CXR, further monitoring. I spoke with the patient at length about the risks of leaving prior to full evaluation. Pt was alert and oriented, able to make her own medical decisions. Pt signed AMA form. Pt encouraged to return at any time. Myrna Gastelum DO *DC/Admit/Observation/Transfer Diagnosis at time of Disposition: Pre-syncope - Discharge Dispostion Disposition: AGAINST MEDICAL ADVICE Condition at time of disposition: Unchanged/Unknown Decision to Admit order: No - Referrals Referrals: Shelia Cason MD [Primary Care Provider] - - Patient Instructions - Post Discharge Activity
--- NOTE | 2019-02-19 16:17 | PDOC ---
Attending Attestation - Resident Resident Name: Myrna Gastelum - ED Attending Attestation I have performed the following: I have examined & evaluated the patient, The case was reviewed & discussed with the resident, I agree w/resident's findings & plan, Exceptions are as noted - HPI HPI: 02/19/19 16:13 63 F with no PMH presents to ED for near-syncope. Pt states that she was walking outside when she began to feel very lightheaded. Denies LOC. Denies CP/ SOB/palpitations. No F/C. No N/V/D. Her symptoms resolved after approx 30 minutes. Pt now with no complaints, feels back to her baseline. - Physicial Exam PE: 02/19/19 16:14 "GENERAL: Awake, alert, and fully oriented, in no acute distress. HEAD: No signs of trauma EYES: PERRLA, EOMI, sclera anicteric, conjunctiva clear ENT: Auricles normal inspection, hearing grossly normal, nares patent, oropharynx clear without exudates. Moist mucosa NECK: Nontender, no stepoffs, Normal ROM, supple, no lymphadenopathy, JVD, or masses LUNGS: Breath sounds equal, clear to auscultation bilaterally. No wheezes, and no crackles HEART: Regular rate and rhythm, normal S1 and S2, no murmurs, rubs or gallops ABDOMEN: Soft, nontender, normoactive bowel sounds. No guarding, no rebound. No masses EXTREMITIES: Normal range of motion, no edema. No clubbing or cyanosis. No cords, erythema, or tenderness NEUROLOGICAL: Cranial nerves II through XII intact. 5/5 strength and sensation in all extremities, Normal speech, normal gait, normal cerebellar function SKIN: Warm, Dry, normal turgor, no rashes or lesions noted. - Medical Decision Making 02/19/19 16:14 63 F with near-syncope. EKG NSR,n o evidence f arrhythmia or ischemia. I discussed with pt necessity of bloodwork and possibly imaging to rule out serious cause of her lightheadedness. However, pt states she feels completely well and does not want any additional testing. The patient is clinically sober, free from distracting injury, appears to have intact insight and judgment and reason and in my opinion has the capacity to make decisions. The patient presented with pre-syncope. I have explained that I am concerned that this may represent arrhythmia or anemia or other serious medical problem; they have verbalized an understanding of my concerns. I have told the patient that while their EKG was normal, they could still have arrhythmia or other medical problem. I have discussed the need for blood tests to get more information about potential causes of the patients pre-syncope. I have told the patient that if they leave and have lightheadedness, fainting, chest pain or shortness of breath, they could get much worse, could become critically ill, and could possibly become disabled or . I am unable to convince the patient to stay, I have asked them to return as soon as possible to complete their evaluation. I have answered all their questions.
--- NOTE | 2019-02-20 14:37 | EKG ---
Test Reason : Blood Pressure : / mmHG Vent. Rate : 067 BPM Atrial Rate : 067 BPM P-R Int : 168 ms QRS Dur : 090 ms QT Int : 404 ms P-R-T Axes : 065 003 061 degrees QTc Int : 426 ms NORMAL SINUS RHYTHM NONSPECIFIC ST ABNORMALITY WHEN COMPARED WITH ECG OF 21-NOV-2016 19:07, NO SIGNIFICANT CHANGE WAS FOUND Confirmed by VANDANA VEGA MD ([id number]) on 02/20/2019 2:37:44 PM Referred By: Confirmed By:VANDANA VEGA MD
== END 2019-02-19 16:27 | disposition left against medical advice (07) ==
LOC: JER 14:00
DX: R55 Syncope and collapse (principal); F17.210 Nicotine dependence, cigarettes, uncomplicated
CPT/HCPCS: 93005; 93010; 99285-25

== ENCOUNTER 2022-08-26 11:35 | Emergency (ER) | payer OTHER ==
[2022-08-26 11:56] VITALS: BP 129/73; PULSE 78; RESP 20; TEMP 97.7; BMI 19.3
== END 2022-08-26 13:33 | disposition home or self-care (01) ==
LOC: FER 11:35
DX: M79.661 Pain in right lower leg (principal); W22.8XXA Striking against or struck by other objects, initial encounter
CPT/HCPCS: 73590-TC-RT-FY; 73610-TC-RT-FY; 99283-25

== ENCOUNTER 2023-05-03 13:38 | Emergency (ER) | payer OTHER ==
[2023-05-03 13:51] VITALS: RESP 18; BMI 19.1
[2023-05-03] MEDS ORDERED: SODIUM CHLORIDE 0.9% 500 ML INFUS.BAG IV ONE ×2 (14:46→21:05)
[2023-05-03] MEDS ORDERED: ONDANSETRON 4 MG/2 ML VIAL IVPUSH ONE ×2 (14:46→18:13)
[2023-05-03] MEDS ORDERED: ONDANSETRON 4 MG/2 ML VIAL ONE ×2 (15:05→18:27)
[2023-05-03 15:29] LABS: EPI CELLS 16 /uL (0-25.1); HYALINE CASTS 0 /uL (0-3.1); URINE APPEARANCE CLOUDY; URINE BACTERIA 235 /uL (0-1359); URINE BILIRUBIN NEGATIVE (NEGATIVE); URINE COLOR YELLOW; URINE GLUCOSE (UA) NEGATIVE (NEGATIVE); URINE KETONE NEGATIVE (NEGATIVE); URINE LEUK ESTERASE TRACE (NEGATIVE); URINE NITRITE NEGATIVE (NEGATIVE); URINE PROTEIN NEGATIVE (NEGATIVE); URINE RBC 47 /uL (0-23.9); URINE UROBILINOGEN 0.2 mg/dL (0.2-1.0); URINE WBC 19 /uL (0-25.8)
[2023-05-03] MEDS ORDERED: morphine CARPU-JECT 2 MG/1 ML DISP.SYRIN IVPUSH ONE (15:35)
[2023-05-03 15:57] LABS: INR 1.01 (0.83-1.09); PROTHROMBIN TIME (PATIENT) 11.7 SEC (9.7-13.0)
[2023-05-03 15:59] LABS: ACTIVATED PTT 33.8 SECONDS (25.2-36.5)
[2023-05-03 16:06] LABS: POTASSIUM 4.1 mmol/L (3.5-5.1)
[2023-05-03 16:08] LABS: ALBUMIN 3.8 g/dl (3.4-5.0); BLOOD UREA NITROGEN 12.2 mg/dL (7-18); CALCIUM 9.5 mg/dL (8.5-10.1)
[2023-05-03 16:09] LABS: BASO % 0.4 % (0-2.0); EOS % 1.6 % (0-4.5); HEMATOCRIT 41.4 % (32.4-45.2); HEMOGLOBIN 14.2 GM/dL (10.7-15.3); LYMPH % 26.8 % (8-40); MCHC 34.3 g/dl (32.0-36.0); MEAN CELL VOLUME 96.3 fl (80-96); MEAN PLT VOLUME 8.7 fl (7.5-11.1); MONO % 6.9 % (3.8-10.2); NEUT % 64.3 % (42.8-82.8); PLATELET COUNT 286 10^3/uL (134-434); RDW 12.7 % (11.6-15.6)
[2023-05-03 16:11] LABS: CREATININE 0.7 mg/dL (0.55-1.3)
[2023-05-03 16:13] LABS: BILIRUBIN,TOTAL 0.6 mg/dL (0.2-1); TOT PROT 7.3 g/dl (6.4-8.2)
[2023-05-03] MEDS ORDERED: oxyCODONE HCL 5 MG TABLET ONE (17:01)
[2023-05-03] MEDS: oxyCODONE HCL 5 MG TABLET PO ONE ×2 (17:02→17:06)
[2023-05-03] MEDS ORDERED: HYDROmorphone HCl 2 MG/ML VIAL IVPUSH ONE ×2 (17:05→17:34)
[2023-05-03] MEDS ORDERED: HYDROmorphone HCl 2 MG/ML VIAL ONE ×2 (17:18→17:46)
[2023-05-03] MEDS ORDERED: morphine SULFATE 4 MG/ML VIAL IVPUSH PRN (18:12)
[2023-05-03] MEDS ORDERED: morphine SULFATE 4 MG/ML VIAL ONE (18:26)
[2023-05-03] MEDS ORDERED: MAGNESIUM CITRATE 300 ML BOTTLE PO ONE (21:02)
[2023-05-03] MEDS ORDERED: METOCLOPRAMIDE HCL INJECTION 10 MG/2 ML VIAL IVPB ONE (21:04)
[2023-05-03 21:10] VITALS: BP 122/81; PULSE 86; TEMP 97
[2023-05-03] MEDS ORDERED: METOCLOPRAMIDE HCL INJECTION 10 MG/2 ML VIAL ONE (21:18)
[2023-05-03] MEDS ORDERED: MAGNESIUM CITRATE 300 ML BOTTLE ONE (21:18)
== END 2023-05-03 21:37 | disposition admitted as inpatient to this hospital (09) ==
LOC: JER 13:38
PROC: 3E033GC Introduction of Other Therapeutic Substance into Peripheral Vein, Percutaneous Approach (ICD-10-PCS; principal; 2023-05-03)
PROC: 3E033GC Introduction of Other Therapeutic Substance into Peripheral Vein, Percutaneous Approach (ICD-10-PCS; 2023-05-03)
PROC: 3E033GC Introduction of Other Therapeutic Substance into Peripheral Vein, Percutaneous Approach (ICD-10-PCS; 2023-05-03)
PROC: 3E033GC Introduction of Other Therapeutic Substance into Peripheral Vein, Percutaneous Approach (ICD-10-PCS; 2023-05-03)
PROC: 3E033GC Introduction of Other Therapeutic Substance into Peripheral Vein, Percutaneous Approach (ICD-10-PCS; 2023-05-03)
DX: R10.11 Right upper quadrant pain (principal); K59.00 Constipation, unspecified; R11.2 Nausea with vomiting, unspecified
CPT/HCPCS: 36415; 74177-TC; 80053; 81003; 83690; 84484; 85025; 85610; 85730; 86850; 86900; 86901; 87086; 93005; 93010; 99285-25; Q9967